=== PATIENT | male | born 1955 | race Caucasian/White ===

== ENCOUNTER 2016-04-23 16:47 | Emergency (ER) | payer OTHER, BC ==
[~2016-04-23] VITALS: Ht 177.8 cm; Wt 104.6 kg
[~2016-04-23 16:47] MED LIST: ATV/1 PO; CITA40TA12 PO; DOXY100C PO; FLNIN NAE; OMEP20CA9 PO; SIMV20TA2 PO
[2016-04-23 16:49] VITALS: TEMP 36.5; Ht 177.8 cm; Wt 104.6 kg
[2016-04-23 17:26] LABS: BASO % 0.1 %; BASO ABS # 0.01 K/uL (0-0.2); COMPLETE YES; EOS % 0.3 %; HEMATOCRIT 41.7 % (42-52); IG% 0.3 %; LYMPH % 8.5 %; LYMPH ABS # 0.99 K/uL (1.2-3.4); MEAN CELL VOLUME 83.9 fL (80-100); MEAN CORPUSCULAR HGB CONC 36.9 g/dl (32-36); MEAN PLATELET VOLUME 9.1 fL (7.4-10.4); MONO % 4.4 %; NEUT % 86.4 %; PLATELET COUNT 135 K/uL (130-400); RED BLOOD COUNT 4.97 M/uL (4.7-6.1); WHITE BLOOD COUNT 11.61 K/uL (4.8-10.8)
[2016-04-23 17:43] LABS: ALT/SGPT 26 U/L (12-78); BLOOD UREA NITROGEN 28 mg/dl (7-18); BUN/CREATININE RATIO 25.6 (10-20); CALCIUM 8.7 mg/dl (8.5-10.1); CARBON DIOXIDE 25 mmol/L (21-32); CHLORIDE 105 mmol/L (98-107); GLUCOSE 107 mg/dl (70-99); POTASSIUM 3.9 mmol/L (3.5-5.1); SODIUM 141 mmol/L (136-145)
[2016-04-23 17:47] LABS: ALKALINE PHOSPHATASE 82 U/L (45-117); AST/SGOT 28 U/L (15-37)
[2016-04-23] MEDS ORDERED: KETOROLAC TROMETHAMINE 30 MG/ML VIAL IV STA (17:48)
[2016-04-23] MEDS ORDERED: SODIUM CHLORIDE 0.9% 1000ML 1,000 ML IV STA (17:48)
[2016-04-23] MEDS ORDERED: ONDANSETRON INJ 2 MG/ML 2 ML VIAL IV STA (17:48)
[2016-04-23] MEDS ORDERED: HYDR-4079 PO (17:53)
[2016-04-23] MEDS ORDERED: LISI-725 PO (17:53)
[2016-04-23] MEDS ORDERED: MELO7.5T5 PO (17:53)
[2016-04-23] MEDS ORDERED: CHOL1000 PO (17:53)
--- NOTE | 2016-04-23 18:17 | DIAGNOSTIC IMAGING REPORT ---
CHEST ONE VIEW PORTABLE CLINICAL HISTORY: nausea vomiting COMPARISON STUDY: 03/18/2012 FINDINGS: Small bibasilar parenchymal infiltrates versus atelectasis. Lungs otherwise appear clear. Diaphragms smooth. IMPRESSION: Atelectatic change versus small bibasilar infiltrates Electronically signed by: Robbin Andrade M.D. 04/23/2016 6:16 PM Dictated Date/Time: 04/23/2016 6:15 PM
[2016-04-23 18:24] LABS: URINE BILIRUBIN NEG (NEG); URINE COLOR YELLOW; URINE EPITHELIAL CELL AUTO >30 /lpf (0-5); URINE NITRITE NEG (NEG); UROBILINOGEN NEG (NEG); ZZUR CULT IF INDIC CLEAN CATCH NO
[2016-04-23 18:36] LABS: MANUAL MICROSCOPIC REQUIRED? NO; REVIEW REQ? YES
[2016-04-23 20:24] VITALS: BP 149/81; PULSE 90; O2SAT 98
--- NOTE | 2016-04-23 20:49 | EMERGENCY ROOM VISIT NOTE ---
History Report prepared by Alex: Mari Morel Under the Supervision of: Coco BartonO. First contact with patient: 16:57 Chief Complaint: DIARRHEA Stated Complaint: BROKE OUT IN SWEAT,NAUSEA,DIARRHEA Nursing Triage Summary: pt had sudden onset of diarrhea, diaphoresis and severe headache awoke pt from sleeping at 1500 [facility] History of Present Illness The patient is a 60 year old male who presents to the Emergency Room with complaints of constant diarrhea beginning 2 hours ago. The patient states that he woke from sleeping suddenly 2 hours ago and was soaked in sweat. Following this he was having diarrhea and some nausea. He notes that he felt weak all over. He also started to have a dull headache which is located in the front of his head. He notes that he went to the urgent care and they sent him here as the was concerned that this was his heart. The patient's reports that his blood pressure was 178/91. The patient denies any cough, runny nose, sorethroat, chest pain, ear pain, shortness of breath, vomiting, previous abdominal surgeries, anyone around him been sick, and recent travel. The patient reports that he has high cholesterol and hypertension. Source of History: patient Onset: 2 hours ago Position: other (global) Quality: other (diarrhea) Timing: constant Associated Symptoms: + abdominal pain, + diaphoresis, + headache, + nausea, + weakness, No SOB, No chest pain, No cough, No sorethroat, No vomiting Note: The patient denies any runny nose, previous abdominal surgeries, anyone around him been sick, and recent travel. Review of Systems See HPI for pertinent positives & negatives. A total of 10 systems reviewed and were otherwise negative. Past Medical & Surgical Medical Problems: (1) High cholesterol (2) HTN (hypertension) Family History Diabetes mellitus Hypertension Social History Smoking Status: Never Smoker Smokeless Tobacco Use: No Alcohol Use: occasionally Marital Status: Housing Status: lives with significant other Occupation Status: retired Current/Historical Medications Scheduled Cholecalciferol (Vitamin D3), 1,000 UNITS PO DAILY Citalopram Hydrobromide (Celexa), 40 MG PO HS Lisinopril (Zestril), 20 MG PO DAILY Lorazepam (Ativan), 1 MG PO DAILY PRN Meloxicam (Mobic), 15 MG PO DAILY Omeprazole (Prilosec), 20 MG PO QAM Simvastatin (Zocor), 20 MG PO HS Scheduled PRN Hydrocodone/Acetaminophen 10MG/325MG ([place] 10MG/325MG), 1 TAB PO DAILY PRN for Pain Allergies Coded Allergies: Gluten (Unverified Allergy, Unknown, DIARRHEA-CELIAC DISEASE, 08/04/14) Nickel (Unverified Allergy, Unknown, LOCAL DERMATITIS, 08/04/14) Physical Exam Vital Signs Date Time Temp Pulse Resp B/P Pulse Ox O2 Delivery O2 Flow Rate FiO2 04/23/16 20:24 90 20 149/81 98 Room Air 04/23/16 20:22 90 20 149/81 99 04/23/16 17:30 77 20 153/91 99 Room Air 04/23/16 16:49 36.5 73 20 159/99 97 Room Air Physical Exam GENERAL: sitting up in bed, disheveled, no distress, non-toxic EYE EXAM: normal conjunctiva OROPHARYNX: no exudate, no erythema, lips, buccal mucosa, and tongue normal and mucous membranes are moist NECK: supple, no nuchal rigidity, no adenopathy, non-tender LUNGS: Clear to auscultation. Normal chest wall mechanics HEART: no murmurs, S1 normal and S2 normal ABDOMEN: abdomen soft, non-tender, normo-active bowel sounds, no masses, no rebound or guarding. BACK: Back is symmetrical on inspection and there is no deformity, no midline tenderness, no CVA tenderness. SKIN: no rashes and no bruising UPPER EXTREMITIES: upper extremities are grossly normal. LOWER EXTREMITIES: No pitting edema. NEURO EXAM: Normal sensorium, cranial nerves II-XII intact, normal speech, no weakness of arms, no weakness of legs. Drift. Finger to nose intact Medical Decision & Procedures ER Provider Diagnostic Interpretation: Xray results per the radiologist and my interpretation. CHEST ONE VIEW PORTABLE FINDINGS: Small bibasilar parenchymal infiltrates versus atelectasis. Lungs otherwise appear clear. Diaphragms smooth. IMPRESSION: Atelectatic change versus small bibasilar infiltrates Electronically signed by: Robbin Andrade M.D. 04/23/2016 6:16 PM Dictated Date/Time: 04/23/2016 6:15 PM Laboratory Results 04/23/16 17:15 Red Blood Count 4.97, Mean Corpuscular Volume 83.9, Mean Corpuscular Hemoglobin 31.0, Mean Corpuscular Hemoglobin Concent 36.9, Mean Platelet Volume 9.1, Neutrophils (%) (Auto) 86.4, Lymphocytes (%) (Auto) 8.5, Monocytes (%) (Auto) 4.4, Eosinophils (%) (Auto) 0.3, Basophils (%) (Auto) 0.1, Neutrophils # (Auto) 10.03, Lymphocytes # (Auto) 0.99, Monocytes # (Auto) 0.51, Eosinophils # (Auto) 0.04, Basophils # (Auto) 0.01 04/23/16 17:15 Test 04/23/16 17:15 04/23/16 18:00 04/23/16 19:09 White Blood Count 11.61 K/uL (4.8-10.8) Red Blood Count 4.97 M/uL (4.7-6.1) Hemoglobin 15.4 g/dL (14.0-18.0) Hematocrit 41.7 % (42-52) Mean Corpuscular Volume 83.9 fL (80-100) Mean Corpuscular Hemoglobin 31.0 pg (25-34) Mean Corpuscular Hemoglobin Concent 36.9 g/dl (32-36) Platelet Count 135 K/uL (130-400) Mean Platelet Volume 9.1 fL (7.4-10.4) Neutrophils (%) (Auto) 86.4 % Lymphocytes (%) (Auto) 8.5 % Monocytes (%) (Auto) 4.4 % Eosinophils (%) (Auto) 0.3 % Basophils (%) (Auto) 0.1 % Neutrophils # (Auto) 10.03 K/uL (1.4-6.5) Lymphocytes # (Auto) 0.99 K/uL (1.2-3.4) Monocytes # (Auto) 0.51 K/uL (0.11-0.59) Eosinophils # (Auto) 0.04 K/uL (0-0.5) Basophils # (Auto) 0.01 K/uL (0-0.2) RDW Standard Deviation 37.6 fL (36.4-46.3) RDW Coefficient of Variation 12.4 % (11.5-14.5) Immature Granulocyte % (Auto) 0.3 % Immature Granulocyte # (Auto) 0.03 K/uL (0.00-0.02) Anion Gap 11.0 mmol/L (3-11) Est Creatinine Clear Calc Drug Dose 84.3 ml/min Estimated GFR () 82.9 Estimated GFR (Non- 71.6 BUN/Creatinine Ratio 25.6 (10-20) Calcium Level 8.7 mg/dl (8.5-10.1) Total Bilirubin 0.6 mg/dl (0.2-1) Direct Bilirubin 0.2 mg/dl (0-0.2) Aspartate Amino Transf (AST/SGOT) 28 U/L (15-37) Alanine Aminotransferase (ALT/SGPT) 26 U/L (12-78) Alkaline Phosphatase 82 U/L (45-117) Total Protein 7.4 gm/dl (6.4-8.2) Albumin 3.9 gm/dl (3.4-5.0) Lipase 119 U/L (73-393) Urine Color YELLOW Urine Appearance ERROR (CLEAR) Urine pH 8.0 (4.5-7.5) Urine Specific [place] 1.020 (1.000-1.030) Urine Protein NEG (NEG) Urine Glucose (UA) NEG (NEG) Urine Ketones TRACE (NEG) Urine Occult Blood NEG (NEG) Urine Nitrite NEG (NEG) Urine Bilirubin NEG (NEG) Urine Urobilinogen NEG (NEG) Urine Leukocyte Esterase NEG (NEG) Urine WBC (Auto) 1-5 /hpf (0-5) Urine RBC (Auto) 0-4 /hpf (0-4) Urine Hyaline Casts (Auto) 10-30 /lpf (0-5) Urine Epithelial Cells (Auto) >30 /lpf (0-5) Urine Bacteria (Auto) NEG (NEG) Urine Renal Epithelial Cells /lpf (0-5) Influenza Type A Antigen Neg for Influ A (NEG) Influenza Type B Antigen Neg for Influ B (NEG) Troponin I < 0.015 ng/ml (0-0.045) Laboratory results per my review. Medications Administered Medications (Trade) Dose Ordered Sig/[place] Route Start Time Stop Time Status Last Admin Dose Admin Sodium Chloride (Nss 1000ml) 1,000 ml @ 999 mls/hr Q1H1M STAT IV 04/23/16 17:48 04/23/16 18:48 DC 04/23/16 18:22 999 MLS/HR Ketorolac Tromethamine (Toradol Inj) 30 mg NOW STAT IV 04/23/16 17:48 04/23/16 17:49 DC 04/23/16 18:23 30 MG Ondansetron HCl (Zofran Inj) 4 mg NOW STAT IV 04/23/16 17:48 04/23/16 17:49 DC 04/23/16 18:23 4 MG ECG Indication: diaphoresis Rate (beats per minute): 76 Rhythm: sinus rhythm Findings: no ectopy, other (normal axis) Comparison ECG Date: 03/18/12 Change: no significant change ED Course ED COURSE: Vital signs were reviewed and showed hypertension The patients medical record was reviewed The above diagnostic studies were performed and reviewed. ED treatments and interventions as stated above. 1699: The patient was evaluated in room B9. A complete history and physical examination was performed. 1747: Zofran Inj 4mg IV, Toradol Inj 30mg IV, Sodium Chloride 1000 ml @ 999 mls/ hr IV. 1852: I updated the patient. 1958: Upon reevaluation, the patient is hemodynamically stable.I discussed my findings with the patient and he understands and agrees with the treatment plan. Based on the patients age, coexisting illnesses, exam and lab findings the decision to treat as an outpatient was made. The patient remained stable while under my care. The patient appeared well at the time of discharge. Medical Decision Differential diagnosis: Etiologies such as gastroenteritis, food borne illness, infections, appendicitis , diverticulitis, inflammatory bowel disease, obstruction, GI bleed, biliary pathology, as well as others were entertained. Patient is a 58-year-old male who presents the ER for diaphoresis associated with nausea and diffuse weakness. He also had a mild headache. No signs of meningitis or encephalitis on exam. Labs show a leukocytosis of 11.6 thousand. BMP along with LFTs, bilirubin, lipase were negative. Troponin was negative 2. At no point he have any chest pain or shortness of breath. EKG was unremarkable. UA was negative. Influenza A and B were negative. Chest x-ray showed atelectasis the bilateral lower lobes. Do not believe that this is pneumonia as he has no upper respiratory symptoms. Patient family were updated at bedside. He was feeling slightly better following discharge and normal saline. Vitals were unremarkable. He is afebrile. He is discharged follow-up with his primary care doctor. No imaging of his abdomen was obtained as he was nontender and had no real abdominal pain. Discussed with Pt concerning signs and symptoms to watch out for. Pt was instructed to follow up with their PCP and discussed with the patient their option to return to the ED at anytime for persistent or worsening symptoms. The appropriate anticipatory guidance and out- patient management, including indications for return to the emergency department , were explained at length to the patient and understood. Impression Primary Impression: Weak Additional Impression: Diarrhea Scribe Attestation The scribe's documentation has been prepared under my direction and personally reviewed by me in its entirety. I confirm that the note above accurately reflects all work, treatment, procedures, and medical decision making performed by me. Departure Information Dispostion Home / Self-Care Referrals Amna Thibodeaux D.O. (PCP) Forms HOME CARE DOCUMENTATION FORM, IMPORTANT VISIT INFORMATION, WORK / SCHOOL INSTRUCTIONS Patient Instructions ED Weakness [facility] Additional Instructions Please follow up with your primary care doctor with in the next 24 hours. Any worsening of your symptoms, please return to the ED immediately. This includes fevers greater than 100.4, abdominal pain, chest pain, shortness of breath, or any other concerning signs or symptoms from your stand point. Please try to remain aggressively hydrated. Problem Qualifiers Additional Impression: Diarrhea Diarrhea type: unspecified type Qualified Codes: R19.7 - Diarrhea, unspecified
== END 2016-04-23 20:23 | disposition home or self-care (01) ==
LOC: C.EDB 16:49
DX: R53.1 Weakness (principal); R19.7 Diarrhea, unspecified; I10 Essential (primary) hypertension; E78.00 Pure hypercholesterolemia, unspecified; Z82.49 Family history of ischemic heart disease and other diseases of the circulatory system; Z83.3 Family history of diabetes mellitus; Z79.899 Other long term (current) drug therapy

== ENCOUNTER 2020-01-20 20:43 | Observation (INO) ==
--- OUTSIDE RECORDS SUMMARY | 2020-01-20 20:45 | External Medical Summary | Continuity of Care Document ---
:1955 Author Name Irasema De Leon, Provider Address Unavailable Unavailable , Care Team Providers Name Role Phone Irasema De Leon, Urology Unavailable [email or web address] PCP, UNKNOWN Unavailable Unavailable Problems Active medical history not documented Allergies and Adverse Reactions Allergy history not documented Medications Medications not documented Procedures Procedures not documented Immunizations Immunizations not documented Plan of Treatment Planned Observations Planned Goals not documented Results No Known Results Results not documented
[2020-01-20 21:36] LABS: Basophils # (auto) 0.02 K/uL (0-0.2); Basophils % (auto) 0.2 %; Eosinophils # (auto) 0.02 K/uL (0-0.5); Eosinophils % (auto) 0.2 %; Hematocrit (blood only) 44.2 % (42-52); Hemoglobin 15.9 g/dL (14.0-18.0); Immature Granulocytes # (auto) 0.02 K/uL (0.00-0.02); Immature Granulocytes % (auto) 0.2 %; Lymphocytes # (auto) 1.66 K/uL (1.2-3.4); Mean Corpuscular Hemoglobin 31.7 pg (25-34); Mean Corpuscular Volume 88.2 fL (80-100); Monocytes # (auto) 0.55 K/uL (0.11-0.59); Monocytes % (auto) 6.3 %; Neutrophils # (auto) 6.46 K/uL (1.4-6.5); Neutrophils % (auto) 74.1 %; Platelet Count 176 K/uL (130-400); RDW Coefficient of Variation 12.6 % (11.5-14.5); RDW Standard Deviation 40.4 fL (36.4-46.3); Red Blood Count 5.01 M/uL (4.7-6.1); White Blood Count 8.73 K/uL (4.8-10.8)
[2020-01-20 21:47] LABS: Partial Thromboplastin Time 26.9 Seconds (21.0-31.0); Prothrombin Time 10.3 Seconds (9.0-12.0)
[2020-01-20 22:17] LABS: Alanine Aminotransferase 29 U/L (12-78); Albumin Globulin Ratio 1.1 (0.9-2); Alkaline Phosphatase 85 U/L (45-117); BUN Creatinine Ratio 15.8 (10-20); Bilirubin,Total 0.8 mg/dl (0.2-1); Blood Urea Nitrogen 22 mg/dl (7-18); Calcium 9.6 mg/dl (8.5-10.1); Carbon Dioxide 27 mmol/L (21-32); Chloride 106 mmol/L (98-107); Est GFR (African American) 61.9; Est GFR (Non-African American) 53.4; Globulin 3.6 gm/dl (2.5-4.0); Glucose 109 mg/dl (70-99); Sodium 141 mmol/L (136-145); Total Protein 7.6 gm/dl (6.4-8.2); Troponin I < 0.015 ng/ml (0-0.045)
[2020-01-20 22:25] LABS: Appearance Urine Clear (Clear); Bilirubin Urine Negative (Negative); Blood Urine Negative (Negative); Color Urine Yellow; Glucose Urine UA Negative (Negative); Ketones Urine Negative (Negative); Leukocyte Esterase Urine Negative (Negative); Nitrite Urine Negative (Negative); Protein Urine Negative (Negative); Urobilinogen Urine Negative (Negative)
[2020-01-20 22:59] LABS: Potassium 3.8 mmol/L (3.5-5.1)
[2020-01-20] MEDS ORDERED: SODIUM CHLORIDE 0.9% 500 ML IV ONE (22:59)
[2020-01-20 23:02] LABS: D Dimer 660 ug/L FEU (0-500)
[2020-01-20 23:14] LABS: Magnesium 2.2 mg/dl (1.8-2.4); Thyroid Stimulating Hormone 1.14 uIu/ml (0.300-4.500)
[2020-01-20] MEDS ORDERED: OPTIRAY 320 125ml IV ONE (23:54)
--- NOTE | 2020-01-21 00:27 | History & Physical Report ---
Date of Service January 21, 2020 Assessment & Plan (1) Syncope: Patient is a 58-year-old male with a past medical history of hypertension, GERD, arthritis, degenerative disc disease, hyperlipidemia, obesity, pain, depression, with a remote history of epilepsy as a child. Patient relays a hi story to me of recent syncopal episodes. #Syncope Previously worked up at [facility], with no clear etiology of the syncope. Previously felt as if syncope was related to orthostasis related to use of Viagra. Patient has been stopped using Viagra, and continued to have syncopal episodes. Given the lack of post ictal characteristics, lack of aura, lack of other neurological symptoms, his syncope is most likely related to a more benign process such as orthostasis as opposed to significant arrhythmia or seizure. However given the repeated episodes, and current atrial fibrillation we will admit him for observation and further work-up. Monitor neuro and vital signs Fall precautions Optimize electrolytes Cardiology consultation Patient reports that he was told by EMS that he had atrial fibrillation- Patient does not previously carry diagnosis of atrial fibrillation, he had an echo obtained at [facility] which demonstrate left ventricular cavity size is normal, wall thickness mildly increased, systolic function normal, EF 60 to 65%, no wall motion abnormalities, patient was in sinus rhythm during the study. Well it is unlikely it is certainly possible that the patient could be experiencing syncopal episodes if he transitions into and out of atrial fibrillation. Will will provide a small dose of Lopressor and a cardiology consult, monitor on telemetry. EKG in the ED found be normal sinus rhythm, and patient will be admitted to the telemetry unit for monitoring for possible arrhythmia -Monitor on telemetry -Provided one-time dose of IV 5 mg metoprolol with hopes of gaining some rate control at this time I do not think diltiazem is indicated. -We will monitor through the night -Consult cardiology -Echo ordered #Anxiety Patient with a history of anxiety and panic attacks, reports he had no anxiety symptoms or panic attack symptoms during his current syncopal episodes. Patient is currently controlled on duloxetine 60 mg p.o. daily. -Continue home medication -Explore anxiety as an etiology for his current presentation #Hyperlipidemia -Continue simvastatin 20 mg p.o. at bedtime #Hypertension -Continue home losartan 50 mg p.o. daily -Continue home lisinopril 20 mg daily #GERD -Continue daily omeprazole #Arthritis -Continue meloxicam 15 mg p.o. at bedtime #History of epilepsy The team to consider whether this is contributing or not. -To consider neurology consult FENa: N.p.o. overnight in the event of procedure is warranted tomorrow Code Status: Full code DVT PPX: Heparin drip PT/OT: Not indicated Dispo: Telemetry Beni Ulrich MD PGY 2, FCM This chart was completed utilizing [employer] voice recognition software. Grammatical errors, random word insertions, pronoun errors, and in complete sentences are an occasional consequence of the system. Any questions or concerns about the content, text, or information contained within the body of this dictation should be addressed directly to the physician for clarification. (2) Anxiety: (3) Atrial fibrillation: (4) History of epilepsy: (5) HTN (hypertension): (6) High cholesterol: (7) Weak: (8) GERD (gastroesophageal reflux disease): History of Present Illness Patient is a 58-year-old male with a past medical history of hypertension, GERD, arthritis, degenerative disc disease, hyperlipidemia, obesity, pain, depression, with a remote history of epilepsy as a child. Patient relays a history to me of recent syncopal episodes. He reports the first syncopal episode happened on January 11. At that time he was sitting on the ground playing with his dog, he got up to take the dog outside and had a syncopal episode. During the episode he reportedly fell to the floor, his ran to him, noted he was not breathing, began smacking his back. Eventually he regained consciousness. He did not describe any postictal symptoms, nor other symptoms that would suggest the cause of his syncopal episode. He had presented to the [facility] ER at that point who evaluated him for the syncopal episode. He had a negative work- up at [facility], and was admitted overnight. Given his negative work-up, the physicians felt as if it was caused by his Viagra and an orthostatic episode. He returned home and was doing well, approximately 2 nights ago he had an episode in the middle the night where he was breathing heavy, his woke him up, he was sweaty and hot, he went back to sleep at night without any issues. Earlier today he was in his usual state of health when he experienced a syncopal episode and subsequently presented to our emergency department. In route to the emergency department the EMS team noted that the patient was in atrial fibrillation. Upon arrival to the emergency department he was examined, and no focal findings were identified. lab work was performed demonstrating a normal CBC, and elevated D-dimer to 660, normal Chem-7, normal liver function studies, and normal urine. Preliminary wet read for chest CTA is negative for embolus chest x-ray is negative as well. EKG demonstrated normal sinus rhythm with a rate of 100, pressures are 158/91. Patient was administered 1 L of sodium chloride. Upon reviewing the history with the patient he did identify that he was previously treated for epilepsy well in high school, he does not remember significant d etails, and remembers weaning himself off the medicine. The patient does not follow with a equity research analyst he was opposed to see when tomorrow. Given the patient's multiple syncopal episodes, the primary team was contacted for admission Primary Care Provider: Amna Thibodeaux Allergies Allergy/AdvReac Type Severity Reaction Status Date / Time gluten Allergy Unknown DIARRHEA-CELIAC Unverified 01/21/20 00:07 DISEASE nickel Allergy Unknown LOCAL Unverified 01/21/20 00:07 DERMATITIS Home Medications Medication Instructions Recorded Confirmed Type duloxetine 60 mg PO DAILY 01/21/20 01/21/20 History lisinopril 20 mg PO DAILY 01/21/20 01/21/20 History losartan 50 mg PO DAILY 01/21/20 01/21/20 History meclizine 25 mg PO TID PRN 01/21/20 01/21/20 History meloxicam 15 mg PO HS 01/21/20 01/21/20 History omeprazole 20 mg PO DAILY 01/21/20 01/21/20 History simvastatin 20 mg PO HS 01/21/20 01/21/20 History Past Med/Surg History Medical History GERD (gastroesophageal reflux disease) High cholesterol HTN (hypertension) Social History Smoking Status: Unknown if ever smoked Hx Alcohol Use: No Hx Substance Use: No Preferred Language: Bangladeshi Communication Ability: Effective Tubing Machine Tender Required: No Beliefs That Will Affect Care: None Current Living Situation: Family Feels Safe at Home: Yes Safety Concerns: Feels Safe At This Time Assistive Devices: Glasses Review of Systems Review of Systems: All systems reviewed & are unremarkable except as noted in HPI & below Physical Exam Physical Exam: General: In no acute distress, lying in bed HEENT: Normocephalic atraumatic Neck: Normal to visual inspection, trachea midline Cardiac: normal S1, normal S2, I did not appreciate any significant murmurs, rubs, gallops, negative pedal edema, negative calf tenderness Respiratory: Clear to auscultation bilaterally with symmetrical chest expansion bilaterally, I did not appreciate significant wheezes, rales, rhonchi GI: Soft, nontender, nondistended, bowel sounds present in all 4 quadrants MSK: Moves all extremities Skin: Warm dry intact Neuro: Alert and oriented x4, CN II through XII grossly intact, strength grossly intact, sensation grossly intact, cerebellar function grossly intact Psych: Normal affect, cooperative Results & Data Results & Data ([facility]) Vital Signs (Past 12 Hours) Vital Signs Temp Pulse Pulse Resp BP BP Pulse Ox 01/20/20 22:52 100 H 16 158/91 H 98 01/20/20 21:30 103 H 17 184/88 H 98 01/20/20 21:20 97 H 17 98 01/20/20 21:10 97 H 14 98 01/20/20 21:00 92 H 14 172/93 H 99 01/20/20 20:52 75 18 97 01/20/20 20:51 36.8 C 94 H 18 166/94 H 100 01/20/20 20:49 77 19 166/114 H 98 Laboratory Results 01/20/20 01/20/20 01/20/20 Range/Units 22:35 22:35 20:57 WBC (4.8-10.8) K/uL RBC (4.7-6.1) M/uL Hgb (14.0-18.0) g/dL Hct (42-52) % MCV (80-100) fL MCH (25-34) pg MCHC (32-36) g/dL RDW Std Deviation (36.4-46.3) fL RDW Coeff of Renetta (11.5-14.5) % Plt Count (130-400) K/uL MPV (7.4-10.4) fL Immature Gran % (Auto) % Neut % (Auto) % Lymph % (Auto) % Brooke % (Auto) % Eos % (Auto) % Baso % (Auto) % Neut # (Auto) (1.4-6.5) K/uL Lymph # (Auto) (1.2-3.4) K/uL Brooke # (Auto) (0.11-0.59) K/uL Eos # (Auto) (0-0.5) K/uL Baso # (Auto) (0-0.2) K/uL Immature Gran # (Auto) (0.00-0.02) K/uL PT (9.0-12.0) Seconds INR (0.9-1.1) APTT (21.0-31.0) Seconds PTT Ratio D-Dimer 660 H* (0-500) ug/L FEU Sodium (136-145) mmol/L Potassium 3.8 (3.5-5.1) mmol/L Chloride (98-107) mmol/L Carbon Dioxide (21-32) mmol/L Anion Gap (3-11) BUN (7-18) mg/dl Creatinine (0.6-1.4) mg/dl Est Cr Clr Drug Dosing ml/min Est GFR ( Amer) Est GFR (Non-Af Amer) BUN/Creatinine Ratio (10-20) Glucose (70-99) mg/dl Calcium (8.5-10.1) mg/dl Magnesium 2.2 (1.8-2.4) mg/dl Total Bilirubin (0.2-1) mg/dl AST 25 (15-37) U/L ALT (12-78) U/L Alkaline Phosphatase (45-117) U/L Troponin I (0-0.045) ng/ml Total Protein (6.4-8.2) gm/dl Albumin (3.4-5.0) gm/dl Globulin (2.5-4.0) gm/dl Albumin/Globulin Ratio (0.9-2) TSH 1.140 (0.300-4.500) uIu/ml Urine Color Yellow Urine Appearance Clear (Clear) Urine pH 8.0 H (4.5-7.5) Ur Specific Given 1.010 (1.000-1.030) Urine Protein Negative (Negative) Urine Glucose (UA) Negative (Negative) Urine Ketones Negative (Negative) Urine Blood Negative (Negative) Urine Nitrite Negative (Negative) Urine Bilirubin Negative (Negative) Urine Urobilinogen Negative (Negative) Ur Leukocyte Esterase Negative (Negative) 01/20/20 01/20/20 01/20/20 Range/Units 20:57 20:57 20:57 WBC 8.73 (4.8-10.8) K/uL RBC 5.01 (4.7-6.1) M/uL Hgb 15.9 (14.0-18.0) g/dL Hct 44.2 (42-52) % MCV 88.2 (80-100) fL MCH 31.7 (25-34) pg MCHC 36.0 (32-36) g/dL RDW Std Deviation 40.4 (36.4-46.3) fL RDW Coeff of Renetta 12.6 (11.5-14.5) % Plt Count 176 (130-400) K/uL MPV 10.0 (7.4-10.4) fL Immature Gran % (Auto) 0.2 % Neut % (Auto) 74.1 % Lymph % (Auto) 19.0 % Brooke % (Auto) 6.3 % Eos % (Auto) 0.2 % Baso % (Auto) 0.2 % Neut # (Auto) 6.46 (1.4-6.5) K/uL Lymph # (Auto) 1.66 (1.2-3.4) K/uL Brooke # (Auto) 0.55 (0.11-0.59) K/uL Eos # (Auto) 0.02 (0-0.5) K/uL Baso # (Auto) 0.02 (0-0.2) K/uL Immature Gran # (Auto) 0.02 (0.00-0.02) K/uL PT 10.3 (9.0-12.0) Seconds INR 1.0 (0.9-1.1) APTT 26.9 (21.0-31.0) Seconds PTT Ratio 1.0 D-Dimer (0-500) ug/L FEU Sodium 141 (136-145) mmol/L Potassium (3.5-5.1) mmol/L Chloride 106 (98-107) mmol/L Carbon Dioxide 27 (21-32) mmol/L Anion Gap 8.0 (3-11) BUN 22 H (7-18) mg/dl Creatinine 1.37 (0.6-1.4) mg/dl Est Cr Clr Drug Dosing 66.0 ml/min Est GFR ( Amer) 61.9 Est GFR (Non-Af Amer) 53.4 BUN/Creatinine Ratio 15.8 (10-20) Glucose 109 H (70-99) mg/dl Calcium 9.6 (8.5-10.1) mg/dl Magnesium (1.8-2.4) mg/dl Total Bilirubin 0.8 (0.2-1) mg/dl AST (15-37) U/L ALT 29 (12-78) U/L Alkaline Phosphatase 85 (45-117) U/L Troponin I < 0.015 (0-0.045) ng/ml Total Protein 7.6 (6.4-8.2) gm/dl Albumin 4.0 (3.4-5.0) gm/dl Globulin 3.6 (2.5-4.0) gm/dl Albumin/Globulin Ratio 1.1 (0.9-2) TSH (0.300-4.500) uIu/ml Urine Color Urine Appearance (Clear) Urine pH (4.5-7.5) Ur Specific Given (1.000-1.030) Urine Protein (Negative) Urine Glucose (UA) (Negative) Urine Ketones (Negative) Urine Blood (Negative) Urine Nitrite (Negative) Urine Bilirubin (Negative) Urine Urobilinogen (Negative) Ur Leukocyte Esterase (Negative) Code Status & VTE Plan Code Status full VTE Prophylaxis Plan VTE Prophylaxis will be ordered: Yes Supervising Physician Co-Signing Physician Notes Attending addendum: I have physically seen this patient, have supervised the medical residents activities, and agree with the H&P unless as otherwise noted. Assessment and Plan: Syncope- Previously admitted to [facility] for 2 days with negative work-up. The patient will be admitted to telemetry for serial cardiac enzymes, serial EKG's, cardiac rhythm monitoring and a 2-D echocardiogram with Dopplers. Continue off of Viagra, even though symptoms appear to not be directly linked at this time. Would also have to consider duloxetine as a potential trigger. Consult cardiology Hyperlipidemia- continue simvastatin GERD- Change omeprazole to pantoprazole Resident Activity Tracking Resident Involvement: Resident Care Provided Care Provided: Adult Hospital Medicine
[2020-01-21] MEDS ORDERED: METOPROLOL TARTRATE 1 MG/ML VIAL IV STA (00:36)
--- NOTE | 2020-01-21 01:37 | Emergency Department Note ---
History of Present Illness General Chief complaint: Syncope Time Seen by Provider: 01/20/20 21:35 Source: patient Mode of arrival: EMS Limitations: no limitations History of Present Illness Maximum Pain Intensity: 3 This patient is a 64-year-old male who presents to the emergency department via EMS for evaluation of a syncopal episode. The patient states that he has had 2 separate syncopal episodes at home. The initial episode occurred last week. The patient had been playing with his dog and states that he got up and went out into the kitchen to take his medications. He then went into the living room and suddenly passed out, falling face first into the coffee table. Patient states that he does not remember the incident. He was told by his that he had turned blue and was not breathing. He was taken to the [facility] and was admitted for 2 days. He was told that he may be dehydrated and was discharged. Patient states that last night during the night, he became diaphoretic and nauseous and his said he seemed to be having difficulty breathing. He states that today, he had another syncopal episode, however prior to this he did feel a gilmore of warmth, nausea and dizziness. He has had some intermittent headaches since his fall last week. He denies chest pain, shortness of breath, fevers or recent illness. Patient states that he was told by EMS he was in atrial fibrillation. He states that he has been keeping well hydrated. Denies urinary symptoms, abdominal pain, diarrhea, vision changes, numbness or weakness. Home Medications Medication Instructions Recorded Confirmed Type duloxetine 60 mg PO DAILY 01/21/20 01/21/20 History lisinopril 20 mg PO DAILY 01/21/20 01/21/20 History losartan 50 mg PO DAILY 01/21/20 01/21/20 History meclizine 25 mg PO TID PRN 01/21/20 01/21/20 History meloxicam 15 mg PO HS 01/21/20 01/21/20 History omeprazole 20 mg PO DAILY 01/21/20 01/21/20 History simvastatin 20 mg PO HS 01/21/20 01/21/20 History sumatriptan succinate [Imitrex] See Rx Instructions .ROUTE 01/22/20 Rx .COMPLEX #5 tab Allergies Allergy/AdvReac Type Severity Reaction Status Date / Time gluten Allergy Unknown DIARRHEA-CELIAC Unverified 01/21/20 00:07 DISEASE nickel Allergy Unknown LOCAL Unverified 01/21/20 00:07 DERMATITIS Past Med/Surg History Medical History GERD (gastroesophageal reflux disease) High cholesterol HTN (hypertension) Social History Smoking Status: Unknown if ever smoked Hx Alcohol Use: No Hx Substance Use: No Preferred Language: Gabonese Communication Ability: Effective Disaster Recovery Specialist Required: No Beliefs That Will Affect Care: None Current Living Situation: Family Feels Safe at Home: Yes Assistive Devices: Glasses Review of Systems A total of 10 systems reviewed and were otherwise negative Physical Exam Vital Signs Vital Signs - 24 hr 01/20/20 20:49 01/20/20 20:51 01/20/20 20:52 Temperature 36.8 C Temperature Source Oral Pulse Rate - Lying Pulse Rate - Sitting Pulse Rate - Standing Pulse Rate 77 94 H 75 Pulse Rate [Right] Pulse Rate from SpO2 Sensor 80 83 Pulse Rhythm [Right] Pulse Strength [Right] Respiratory Rate 19 18 18 Respiratory Effort / Characteristics Respiratory Depth Blood Pressure - Lying Blood Pressure - Sitting Blood Pressure- Standing Blood Pressure 166/114 H 166/94 H Blood Pressure [Right Arm] Blood Pressure Mean 117 118 Blood Pressure Mean [Right Arm] Blood Pressure Position [Right Arm] Pulse Oximetry 98 100 97 Oxygen Delivery Method Room Air Sepsis Recent Fever Within 48 Hours No Sepsis New/Unexplained Change in Mental Status N/A Sepsis Action Taken by Nursing No Action Required 01/20/20 21:00 01/20/20 21:10 01/20/20 21:20 Temperature Temperature Source Pulse Rate - Lying Pulse Rate - Sitting Pulse Rate - Standing Pulse Rate 92 H 97 H 97 H Pulse Rate [Right] Pulse Rate from SpO2 Sensor 92 H 97 H 97 H Pulse Rhythm [Right] Pulse Strength [Right] Respiratory Rate 14 14 17 Respiratory Effort / Characteristics Respiratory Depth Blood Pressure - Lying Blood Pressure - Sitting Blood Pressure- Standing Blood Pressure 172/93 H Blood Pressure [Right Arm] Blood Pressure Mean 126 Blood Pressure Mean [Right Arm] Blood Pressure Position [Right Arm] Pulse Oximetry 99 98 98 Oxygen Delivery Method Sepsis Recent Fever Within 48 Hours Sepsis New/Unexplained Change in Mental Status Sepsis Action Taken by Nursing 01/20/20 21:30 01/20/20 22:20 01/20/20 22:52 Temperature Temperature Source Pulse Rate - Lying 101 H Pulse Rate - Sitting 111 H Pulse Rate - Standing 109 H Pulse Rate 103 H Pulse Rate [Right] 100 H Pulse Rate from SpO2 Sensor 100 H Pulse Rhythm [Right] Regular Pulse Strength [Right] Normal Respiratory Rate 17 16 Respiratory Effort / Characteristics Non-Labored Spontaneous Respiratory Depth Normal Blood Pressure - Lying 179/95 H Blood Pressure - Sitting 190/93 H Blood Pressure- Standing 171/99 H Blood Pressure 184/88 H Blood Pressure [Right Arm] 158/91 H Blood Pressure Mean 129 Blood Pressure Mean [Right Arm] 113 Blood Pressure Position [Right Arm] Pulse Oximetry 98 98 Oxygen Delivery Method Room Air Sepsis Recent Fever Within 48 Hours Sepsis New/Unexplained Change in Mental Status Sepsis Action Taken by Nursing 01/21/20 00:36 01/21/20 00:52 01/21/20 01:18 Temperature Temperature Source Pulse Rate - Lying Pulse Rate - Sitting Pulse Rate - Standing Pulse Rate 99 H Pulse Rate [Right] 96 H 88 Pulse Rate from SpO2 Sensor Pulse Rhythm [Right] Regular Regular Pulse Strength [Right] Normal Normal Respiratory Rate 18 16 Respiratory Effort / Characteristics Non-Labored Spontaneous Non-Labored Spontaneous Respiratory Depth Normal Normal Blood Pressure - Lying Blood Pressure - Sitting Blood Pressure- Standing Blood Pressure 162/98 H Blood Pressure [Right Arm] 162/87 H 150/94 H Blood Pressure Mean Blood Pressure Mean [Right Arm] 112 112 Blood Pressure Position [Right Arm] Lying Lying Pulse Oximetry 96 96 Oxygen Delivery Method Room Air Room Air Sepsis Recent Fever Within 48 Hours Sepsis New/Unexplained Change in Mental Status Sepsis Action Taken by Nursing VITALS: Vitals are noted on the nurse's note and reviewed by myself. GENERAL: This is a 64-year-old male, in no acute distress, lying supine in bed. SKIN: The skin was without rashes. HEAD: Normocephalic atraumatic. EARS: External auditory canals clear, tympanic membranes pearly grimm without erythema or effusion bilaterally. EYES: Pupils equal round and reactive to light and accommodation. Extraocular movements intact. MOUTH: Mucous membranes moist. Tonsils are not enlarged. Pharynx without erythema or exudate. NECK: Supple without nuchal rigidity. No lymphadenopathy. No thyromegaly. HEART: Regular rate and rhythm without murmurs gallops or rubs. LUNGS: Clear to auscultation bilaterally without wheezes, rales or rhonchi. ABDOMEN: Positive bowel sounds x 4. Soft, nontender to palpation. No guarding or rebound tenderness. MUSCULOSKELETAL: Full range of motion throughout. Strength 5/5 throughout. NEURO: Patient was alert and oriented to person place and time. No focal neurological deficits. Course Consultations Consultation #1: [facility] [place] hospitalist Administered Medications Discontinued Medications Acetaminophen (Acetaminophen 325 Mg Tab) 650 mg PO Q4H PRN PRN Reason: Pain or Fever Stop: 02/20/20 01:52 Last Admin: 01/21/20 08:09 Dose: 650 mg Documented by: [id number] Duloxetine HCl (Duloxetine Hcl 60 Mg Cap) 60 mg PO DAILY [facility] Stop: 02/20/20 08:59 Last Admin: 01/22/20 08:10 Dose: 60 mg Documented by: [id number] Admin: 01/21/20 08:10 Dose: 60 mg Documented by: [id number] Heparin Sodium/Dextrose (Heparin Iv Low Dose *No* Bolus) 1 ea IV Q15M [facility]; Protocol Stop: 01/21/20 06:00 Last Admin: 01/21/20 02:58 Dose: Not Given Documented by: [id number] Sodium Chloride (Nss) 500 mls @ 999 mls/hr IV .Q31M ONE Stop: 01/20/20 23:29 Last Infusion: 01/20/20 23:33 Dose: 0 mls/hr Documented by: [id number] Admin: 01/20/20 23:00 Dose: 999 mls/hr Documented by: [id number] Heparin Sodium/Dextrose (Heparin Sodium/Dextrose) 25,000 units in 500 mls @ 20 mls/hr IV .Q24H [facility]; Protocol Stop: 02/20/20 01:52 Last Admin: 01/21/20 03:01 Dose: Not Given Documented by: [id number] Ibuprofen (Ibuprofen 600 Mg Tab) Confirm Administered Dose 600 mg PO .STK-MED ONE Stop: 01/21/20 20:49 Last Admin: 01/21/20 20:49 Dose: 600 mg Documented by: [id number] Ioversol (Optiray 320 125ml) 125 ml IV ONCE ONE Stop: 01/20/20 23:55 Last Admin: 01/20/20 23:55 Dose: 95 ml Documented by: [id number] Lisinopril (Lisinopril 20 Mg Tab) 20 mg PO DAILY [facility] Stop: 02/20/20 08:59 Last Admin: 01/21/20 08:11 Dose: Not Given Documented by: [id number] Losartan Potassium (Losartan Potassium 50 Mg Tab) 50 mg PO DAILY [facility] Stop: 02/20/20 08:59 Last Admin: 01/22/20 08:11 Dose: Not Given Documented by: [id number] Admin: 01/21/20 08:10 Dose: 50 mg Documented by: [id number] Meloxicam (Meloxicam 7.5 Mg Tab) 15 mg PO HS [facility] Stop: 02/20/20 20:59 Last Admin: 01/21/20 20:49 Dose: 15 mg Documented by: [id number] Metoprolol Tartrate (Metoprolol Tartrate 1 Mg/Ml Vial) 5 mg IV NOW STA Stop: 01/21/20 00:37 Last Admin: 01/21/20 00:52 Dose: 5 mg Documented by: [id number] Pantoprazole Sodium (Pantoprazole 40 Mg Tab) 40 mg PO DAILY [facility] Stop: 02/20/20 08:59 Last Admin: 01/22/20 08:10 Dose: 40 mg Documented by: [id number] Admin: 01/21/20 08:10 Dose: 40 mg Documented by: [id number] Polyethylene Glycol (Polyethylene (Miralax) 17 Gm Pack) 17 gm PO DAILY [facility] Stop: 02/20/20 08:59 Last Admin: 01/22/20 08:11 Dose: Not Given Documented by: [id number] Admin: 01/21/20 08:10 Dose: 17 gm Documented by: [id number] Potassium Chloride (Potassium Chloride Crtab 20 Meq Tabcr) 20 meq PO NOW ONE Stop: 01/21/20 01:54 Last Admin: 01/21/20 02:30 Dose: 20 meq Documented by: [id number] Simvastatin (Simvastatin 20 Mg Tab) 20 mg PO HS [facility] Stop: 02/20/20 20:59 Last Admin: 01/21/20 20:50 Dose: 20 mg Documented by: [id number] Sumatriptan Succinate (Sumatriptan Succinate 100 Mg Tab) 100 mg PO ONE ONE Stop: 01/21/20 23:14 Last Admin: 01/22/20 00:27 Dose: 100 mg Documented by: [id number] Medical Decision Making Differential Diagnosis Vasovagal event, dehydration, infection, hypoglycemia, electrolyte abnormalities, cardiac sources, intracerebral event, pulmonary embolism, seizure, toxicologic, neurologic, as well as other pathologies. Home Medications Current Medication List: was personally reviewed by me Laboratory Data Attestation: I reviewed the patient's lab results. Result diagrams: 01/21/20 07:50 01/21/20 07:50 Lab Results 01/20/20 01/20/20 01/20/20 Range/Units 20:57 20:57 20:57 WBC 8.73 (4.8-10.8) K/uL RBC 5.01 (4.7-6.1) M/uL Hgb 15.9 (14.0-18.0) g/dL Hct 44.2 (42-52) % MCV 88.2 (80-100) fL MCH 31.7 (25-34) pg MCHC 36.0 (32-36) g/dL RDW Std Deviation 40.4 (36.4-46.3) fL RDW Coeff of Renetta 12.6 (11.5-14.5) % Plt Count 176 (130-400) K/uL MPV 10.0 (7.4-10.4) fL Immature Gran % (Auto) 0.2 % Neut % (Auto) 74.1 % Lymph % (Auto) 19.0 % Edgar % (Auto) 6.3 % Eos % (Auto) 0.2 % Baso % (Auto) 0.2 % Neut # (Auto) 6.46 (1.4-6.5) K/uL Lymph # (Auto) 1.66 (1.2-3.4) K/uL Edgar # (Auto) 0.55 (0.11-0.59) K/uL Eos # (Auto) 0.02 (0-0.5) K/uL Baso # (Auto) 0.02 (0-0.2) K/uL Immature Gran # (Auto) 0.02 (0.00-0.02) K/uL PT 10.3 (9.0-12.0) Seconds INR 1.0 (0.9-1.1) APTT 26.9 (21.0-31.0) Seconds PTT Ratio 1.0 D-Dimer (0-500) ug/L FEU Sodium 141 (136-145) mmol/L Potassium (3.5-5.1) mmol/L Chloride 106 (98-107) mmol/L Carbon Dioxide 27 (21-32) mmol/L Anion Gap 8.0 (3-11) BUN 22 H (7-18) mg/dl Creatinine 1.37 (0.6-1.4) mg/dl Est Cr Clr Drug Dosing 66.0 ml/min Est GFR ( Amer) 61.9 Est GFR (Non-Af Amer) 53.4 BUN/Creatinine Ratio 15.8 (10-20) Glucose 109 H (70-99) mg/dl Calcium 9.6 (8.5-10.1) mg/dl Magnesium (1.8-2.4) mg/dl Total Bilirubin 0.8 (0.2-1) mg/dl AST (15-37) U/L ALT 29 (12-78) U/L Alkaline Phosphatase 85 (45-117) U/L Troponin I < 0.015 (0-0.045) ng/ml Total Protein 7.6 (6.4-8.2) gm/dl Albumin 4.0 (3.4-5.0) gm/dl Globulin 3.6 (2.5-4.0) gm/dl Albumin/Globulin Ratio 1.1 (0.9-2) TSH (0.300-4.500) uIu/ml Urine Color Urine Appearance (Clear) Urine pH (4.5-7.5) Ur Specific [place] (1.000-1.030) Urine Protein (Negative) Urine Glucose (UA) (Negative) Urine Ketones (Negative) Urine Blood (Negative) Urine Nitrite (Negative) Urine Bilirubin (Negative) Urine Urobilinogen (Negative) Ur Leukocyte Esterase (Negative) SARS-CoV-2 Ag (Rapid) (Negative) 01/20/20 01/20/20 01/20/20 Range/Units 20:57 22:35 22:35 WBC (4.8-10.8) K/uL RBC (4.7-6.1) M/uL Hgb (14.0-18.0) g/dL Hct (42-52) % MCV (80-100) fL MCH (25-34) pg MCHC (32-36) g/dL RDW Std Deviation (36.4-46.3) fL RDW Coeff of Renetta (11.5-14.5) % Plt Count (130-400) K/uL MPV (7.4-10.4) fL Immature Gran % (Auto) % Neut % (Auto) % Lymph % (Auto) % Edgar % (Auto) % Eos % (Auto) % Baso % (Auto) % Neut # (Auto) (1.4-6.5) K/uL Lymph # (Auto) (1.2-3.4) K/uL Edgar # (Auto) (0.11-0.59) K/uL Eos # (Auto) (0-0.5) K/uL Baso # (Auto) (0-0.2) K/uL Immature Gran # (Auto) (0.00-0.02) K/uL PT (9.0-12.0) Seconds INR (0.9-1.1) APTT (21.0-31.0) Seconds PTT Ratio D-Dimer 660 H* (0-500) ug/L FEU Sodium (136-145) mmol/L Potassium 3.8 (3.5-5.1) mmol/L Chloride (98-107) mmol/L Carbon Dioxide (21-32) mmol/L Anion Gap (3-11) BUN (7-18) mg/dl Creatinine (0.6-1.4) mg/dl Est Cr Clr Drug Dosing ml/min Est GFR ( Amer) Est GFR (Non-Af Amer) BUN/Creatinine Ratio (10-20) Glucose (70-99) mg/dl Calcium (8.5-10.1) mg/dl Magnesium 2.2 (1.8-2.4) mg/dl Total Bilirubin (0.2-1) mg/dl AST 25 (15-37) U/L ALT (12-78) U/L Alkaline Phosphatase (45-117) U/L Troponin I (0-0.045) ng/ml Total Protein (6.4-8.2) gm/dl Albumin (3.4-5.0) gm/dl Globulin (2.5-4.0) gm/dl Albumin/Globulin Ratio (0.9-2) TSH 1.140 (0.300-4.500) uIu/ml Urine Color Yellow Urine Appearance Clear (Clear) Urine pH 8.0 H (4.5-7.5) Ur Specific [place] 1.010 (1.000-1.030) Urine Protein Negative (Negative) Urine Glucose (UA) Negative (Negative) Urine Ketones Negative (Negative) Urine Blood Negative (Negative) Urine Nitrite Negative (Negative) Urine Bilirubin Negative (Negative) Urine Urobilinogen Negative (Negative) Ur Leukocyte Esterase Negative (Negative) SARS-CoV-2 Ag (Rapid) (Negative) 01/21/20 Range/Units 00:26 WBC (4.8-10.8) K/uL RBC (4.7-6.1) M/uL Hgb (14.0-18.0) g/dL Hct (42-52) % MCV (80-100) fL MCH (25-34) pg MCHC (32-36) g/dL RDW Std Deviation (36.4-46.3) fL RDW Coeff of Renetta (11.5-14.5) % Plt Count (130-400) K/uL MPV (7.4-10.4) fL Immature Gran % (Auto) % Neut % (Auto) % Lymph % (Auto) % Edgar % (Auto) % Eos % (Auto) % Baso % (Auto) % Neut # (Auto) (1.4-6.5) K/uL Lymph # (Auto) (1.2-3.4) K/uL Edgar # (Auto) (0.11-0.59) K/uL Eos # (Auto) (0-0.5) K/uL Baso # (Auto) (0-0.2) K/uL Immature Gran # (Auto) (0.00-0.02) K/uL PT (9.0-12.0) Seconds INR (0.9-1.1) APTT (21.0-31.0) Seconds PTT Ratio D-Dimer (0-500) ug/L FEU Sodium (136-145) mmol/L Potassium (3.5-5.1) mmol/L Chloride (98-107) mmol/L Carbon Dioxide (21-32) mmol/L Anion Gap (3-11) BUN (7-18) mg/dl Creatinine (0.6-1.4) mg/dl Est Cr Clr Drug Dosing ml/min Est GFR ( Amer) Est GFR (Non-Af Amer) BUN/Creatinine Ratio (10-20) Glucose (70-99) mg/dl Calcium (8.5-10.1) mg/dl Magnesium (1.8-2.4) mg/dl Total Bilirubin (0.2-1) mg/dl AST (15-37) U/L ALT (12-78) U/L Alkaline Phosphatase (45-117) U/L Troponin I (0-0.045) ng/ml Total Protein (6.4-8.2) gm/dl Albumin (3.4-5.0) gm/dl Globulin (2.5-4.0) gm/dl Albumin/Globulin Ratio (0.9-2) TSH (0.300-4.500) uIu/ml Urine Color Urine Appearance (Clear) Urine pH (4.5-7.5) Ur Specific [place] (1.000-1.030) Urine Protein (Negative) Urine Glucose (UA) (Negative) Urine Ketones (Negative) Urine Blood (Negative) Urine Nitrite (Negative) Urine Bilirubin (Negative) Urine Urobilinogen (Negative) Ur Leukocyte Esterase (Negative) SARS-CoV-2 Ag (Rapid) Negative (Negative) Imaging Data Attestation: I personally reviewed and interpreted this imaging study as follows: Radiologist's Impression: CTA CHEST: The pulmonary arterial tree is well opacified with contrast. No pulmonary emboli are identified. The thoracic aorta is nondilated. There is no aneurysm or dissection. The heart is not enlarged. No pericardial effusion. No mediastinal or axillary lymphadenopathy or mass. The lungs are well inflated and clear. No acute airspace infiltrates or consolidation is seen. No pneumothorax or pleural effusion. Moderate to severe multilevel degenerative changes throughout the mid to lower thoracic spine. There is partial visualization of instrumentation extending into the upper lumbar spine. No acute fracture or destructive bone lesion is seen. Radiologist: Khanh Ulrich MD ECG Data Attestation: I personally reviewed and interpreted this ECG as follows: Indication: + syncope Rate (beats per minute): 76 Rhythm: + normal sinus ECG Intervals/blocks: + Normal QRS ECG ST segments: + T-wave inversions (inferior) and + Nonspecific ST abnormalities (inferior and lateral) Change: the following changes noted (nonspecific ST changes noted in inferior and lateral leads, T wave inversions inferiorly) MDM Narrative Continuous playground monitor: Order was placed for continuous playground monitor. Patient was placed on the playground monitor. Patient was noted to be in normal sinus rhythm with occasional PACs at an initial rate of 108 bpm. The patient is a 64-year-old male who presents today for evaluation of a syncopal episode. Patient had a syncopal episode tonight and had an additional episode last week. In addition to this, he apparently had an episode where he woke up in the middle the night diaphoretic, nauseous and breathing heavily. Patient feeling well at this time, mild headaches which have been persistent since his syncopal episode and fall last week. He did have a CT of the head and neck performed at [place] which were negative. Labs here are mostly unremarkable, with no leukocytosis, anemia or concerning electrolyte abnormalities. Troponin is not elevated. D-dimer was found to be elevated and CTA of the chest performed which was negative for PE. EKG with some nonspecific ST changes, no ST elevation or arrhythmia. There were some EMS reports of possible A. fib, however patient has been in a normal sinus rhythm on arrival to the ED and there is no rhythm strip showing atrial fibrillation. Patient remained in normal sinus rhythm throughout his ED stay. I do feel that given multiple syncopal episodes, patient would benefit from inpatient stay. Case was discussed with the hospitalist service, who agreed to evaluate the patient for further care. Impression & Plan Syncopal episodes Discharge Plan Visit Data Chief Complaint: Syncope ED Provider: Khanh Abraham ED Midlevel Provider: Gretchen Zavaleta Discharge Problem: Syncopal episodes Patient Disposition: Admitted As Inpatient Condition: Good Discharge Instructions Interventions: ED Discharge Assessment Last Done: 01/21/20 01:37 Discharge Problem: Syncopal episodes Qualifiers: Syncope type: unspecified Qualified Code(s): R55 - Syncope and collapse
[2020-01-21] MEDS ORDERED: HEPARIN SODIUM/DEXTROSE 25,000 UNITS/500 ML BAG IV SCH (01:53)
[2020-01-21] MEDS ORDERED: ONDANSETRON INJ 2 MG/ML 2 ML VIAL IV PRN (01:53)
[2020-01-21] MEDS ORDERED: ACETAMINOPHEN 325 MG TAB PO PRN (01:53)
[2020-01-21] MEDS ORDERED: ALUMINUM/MAGNESIUM SUSP 30 ML UDC PO PRN (01:53)
[2020-01-21] MEDS ORDERED: POTASSIUM CHLORIDE CRTAB 20 MEQ TABCR PO ONE (01:53)
[2020-01-21] MEDS ORDERED: Heparin IV Low Dose *NO* Bolus IV SCH (01:59)
--- NOTE | 2020-01-21 07:10 | CT Scan Report ---
CT ANGIOGRAM OF THE CHEST CLINICAL HISTORY: syncope, elevated dimer POSSIBLE ACUTE PULMONARY EMBOLISM COMPARISON STUDY: No previous studies for comparison. TECHNIQUE: Following the IV administration of 95 mL of Optiray-320, CT angiogram of the thorax was pe rformed from the thoracic inlet to the lung bases utilizing the pulmonary embolus protocol. Images ar e reviewed in the axial, sagittal, and coronal planes. IV contrast was administered without complicat ion. MIP imaging was performed. A dose lowering technique was utilized adhering to the principles of ALARA. CT DOSE: 781.54 mGy.cm FINDINGS: Is a 13 mm right lobe hepatic hypodensity possibly representing a cyst Right hilar lymph nodes are the upper limits of normal in size. There is no pathologic mediastinal ly mphadenopathy. There was no evidence of thoracic aortic dilatation. There were no pulmonary artery filling defects to indicate acute pulmonary embolism. There are no pleural effusions. There is mild dependent atelectasis. There is no focal pulmonary cons olidation. There is a small hiatal hernia. There are moderately advanced degenerative changes in the spine. Postsurgical changes are also eviden t. There are prominent disc osteophyte complexes within the lower thoracic spine There is subpleural 3.5 mm right middle lobe pulmonary nodule. In a low-risk patient, no further foll ow-up is indicated. IMPRESSION: 1. No evidence of acute pulmonary embolism 2. No evidence of focal pulmonary consolidation ACT 112: Negative or not required by law. Electronically signed by: Mickey Holley M.D. 01/21/2020 7:09 AM
--- NOTE | 2020-01-21 07:12 | CT Scan Report ---
HEAD CT NONCONTRAST CT DOSE: 729.78 mGycm HISTORY: headache, reported hx of syncope and head trauma TECHNIQUE: Multiaxial CT images of the head were performed without the use of intravenous contrast. A utomated exposure control was utilized for this study. A dose lowering technique was utilized adheri ng to the principles of ALARA. Comparison: None. Findings: The paranasal sinuses and mastoid air cells are clear. The calvarium and skull base are int act. The ventricles and sulci are within normal limits. There is no mass, hematoma, midline shift, or acute infarct. Impression: No acute intracranial abnormality. ACT 112: Negative or not required by law. Electronically signed by: Geoffrey Mcadams M.D. 01/21/2020 7:10 AM
--- NOTE | 2020-01-21 07:31 | XRay Report ---
XR chest 1V portable HISTORY: Atypical Chest Pain COMPARISON: Chest 04/23/2016. FINDINGS: The lungs are clear. Cardiac silhouette is normal in size. No pleural effusions. No pneumot horax. Thoracolumbar spinal fusion hardware is partially visualized. IMPRESSION: No acute process. ACT 112: Negative or not required by law. Electronically signed by: Geoffrey Mcadams M.D. 01/21/2020 7:30 AM
[2020-01-21 08:09] LABS: Basophils # (auto) 0.02 K/uL (0-0.2); Basophils % (auto) 0.3 %; Eosinophils # (auto) 0.08 K/uL (0-0.5); Eosinophils % (auto) 1.4 %; Hematocrit (blood only) 42.5 % (42-52); Hemoglobin 14.9 g/dL (14.0-18.0); Immature Granulocytes # (auto) 0.01 K/uL (0.00-0.02); Immature Granulocytes % (auto) 0.2 %; Lymphocytes # (auto) 1.72 K/uL (1.2-3.4); Lymphocytes % (auto) 29.4 %; Mean Corpuscular Hemoglobin 31.4 pg (25-34); Mean Corpuscular Hgb Conc 35.1 g/dL (32-36); Mean Corpuscular Volume 89.7 fL (80-100); Mean Platelet Volume 9.7 fL (7.4-10.4); Monocytes # (auto) 0.49 K/uL (0.11-0.59); Monocytes % (auto) 8.4 %; Neutrophils # (auto) 3.53 K/uL (1.4-6.5); Neutrophils % (auto) 60.3 %; Platelet Count 153 K/uL (130-400); RDW Coefficient of Variation 12.6 % (11.5-14.5); RDW Standard Deviation 41.5 fL (36.4-46.3); Red Blood Count 4.74 M/uL (4.7-6.1); White Blood Count 5.85 K/uL (4.8-10.8)
[2020-01-21] MEDS: PANTOprazole 40 MG TAB PO SCH (08:10)
[2020-01-21] MEDS: POLYETHYLENE (MIRALAX) 17 GM PACK PO SCH (08:10)
[2020-01-21] MEDS: DULoxetine HCL 60 MG CAP PO SCH (08:10)
[2020-01-21] MEDS: LOSARTAN POTASSIUM 50 MG TAB PO SCH (08:10)
[2020-01-21 08:20] LABS: Partial Thromboplastin Ratio 0.9; Partial Thromboplastin Time 25.8 Seconds (21.0-31.0)
[2020-01-21 08:39] LABS: Alanine Aminotransferase 24 U/L (12-78); Albumin Level 3.4 gm/dl (3.4-5.0); Aspartate Aminotransferase 23 U/L (15-37); BUN Creatinine Ratio 19.6 (10-20); Blood Urea Nitrogen 20 mg/dl (7-18); Calcium 9.1 mg/dl (8.5-10.1); Carbon Dioxide 26 mmol/L (21-32); Chloride 110 mmol/L (98-107); Creatinine Clr Calc Pharmacy 85.5 ml/min; Est GFR (African American) 87.3; Est GFR (Non-African American) 75.3; Glucose 94 mg/dl (70-99); Potassium 4.1 mmol/L (3.5-5.1); Sodium 141 mmol/L (136-145)
[2020-01-21 08:47] LABS: Albumin Globulin Ratio 1.1 (0.9-2); Alkaline Phosphatase 76 U/L (45-117); Bilirubin,Total 0.5 mg/dl (0.2-1); Globulin 3.2 gm/dl (2.5-4.0); Total Protein 6.6 gm/dl (6.4-8.2)
[2020-01-21] MEDS ORDERED: lisinopril 20 MG TAB PO SCH (09:00)
[2020-01-21 09:24] LABS: Troponin I < 0.015 ng/ml (0-0.045)
--- NOTE | 2020-01-21 11:19 | Cardiology Consultation ---
Date of Consultation January 21, 2020 Assessment & Plan (1) Syncopal episodes: 2 of the episodes have characteristics consistent with vagally mediated syncope. He has a notable prodrome and feels quite poorly afterwards. What triggers these episodes is unclear. The second episode he described did not have a prodrome and is more concerning for an arrhythmia. My understanding is that his evaluation at [facility] was unremarkable. We are still waiting for his echocardiogram report, but I suspect this is normal. He does not have an exam consistent with severe valvular heart disease. There is some concern that he has paroxysmal atrial fibrillation. He does have some atrial ectopy and brief runs of atrial ectopy on telemetry monitoring. It is unclear if this was mistaken for atrial fibrillation or if he truly had atrial fibrillation at the time he was transported to the hospital. It is possible that he has episodes of atrial fibrillation which triggered a vagal response. Change in vagal tone is common when patients transition in and out of atrial fibrillation. Is also possible that he could have conversion pauses related to atrial fibrillation. This is all speculation, we have no documentation of atrial fibrillation or other arrhythmias. If his prior echocardiogram was normal as anticipated, I think his evaluation can be continued as an outpatient. I think he does require a period of ambulatory monitoring. I think he could be provided with a 30-day outpatient event monitor. He is welcome to follow-up in our clinic in a few weeks. Curiously, he is on both lisinopril and losartan for reasons that are not clear. I doubt this contributes to his syncopal episodes, this may contribute to periods of orthostasis that he also describes. History of Present Illness Reason for Consultation: Syncope Requesting Physician: Serg Attending Physician: Mumtaz Pina DO History of Present Illness The patient is a 64-year-old gentleman without a known history of cardiac disease who has been experiencing episodes of syncope. Patient has had occasional episodes of orthostatic symptoms. These are manifest by a sense of mild dizziness and lightheadedness when changing from a squatting or seated position to standing. These do not result in more severe symptoms and are not associated with syncope. The patient has been replacing a floor in his house and has had a few of these episodes while performing this activity. However, he has other more severe episodes to do resultant loss of consciousness. He is experienced 3 of these episodes over the past couple of weeks. On 2 occasions the episodes involved a prodrome of warmth and nausea. This was followed by significant dizziness and brief loss of consciousness. The patient also notes profuse sweating with these episodes. Afterwards he is quite fatigued. One episode of syncope however, did not involve a prodrome. Patient states that he was standing and fell to the ground without any warning. He was admitted to an outside facility for 2 days. He states that they felt he was possibly dehydrated or suffering "vagal" episodes. He has not been aware of palpitations, although his who is a nurse has had some difficulty taking his blood pressure and pulse on occasion. He was felt to have an abnormal rhythm by the online publisher who picked him up yesterday. Reportedly there is documentation of atrial fibrillation. Patient has not had this diagnosis previously This morning he is feeling somewhat fatigued. He is somewhat anxious about recurrent episodes. He has not been ambulatory much since admission. He continues to have a headache and neck pain. This been present for 2 weeks since his initial episode of syncope. He is an otherwise active individual who does not report exertional symptoms. He generally does not have limiting dyspnea. He has had episodes of chest pain in the past that were not exercise related. 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 Allergies Allergy/AdvReac Type Severity Reaction Status Date / Time gluten Allergy Unknown DIARRHEA-CELIAC Unverified 01/21/20 00:07 DISEASE nickel Allergy Unknown LOCAL Unverified 01/21/20 00:07 DERMATITIS Home Medications Medication Instructions Recorded Confirmed Type duloxetine 60 mg PO DAILY 01/21/20 01/21/20 History lisinopril 20 mg PO DAILY 01/21/20 01/21/20 History losartan 50 mg PO DAILY 01/21/20 01/21/20 History meclizine 25 mg PO TID PRN 01/21/20 01/21/20 History meloxicam 15 mg PO HS 01/21/20 01/21/20 History omeprazole 20 mg PO DAILY 01/21/20 01/21/20 History simvastatin 20 mg PO HS 01/21/20 01/21/20 History Patient History Medical History GERD (gastroesophageal reflux disease) High cholesterol HTN (hypertension) Social History Smoking Status: Unknown if ever smoked Hx Alcohol Use: No Hx Substance Use: No Preferred Language: French Communication Ability: Effective Window Installer Required: No Beliefs That Will Affect Care: None Current Living Situation: Family Feels Safe at Home: Yes Safety Concerns: Feels Safe At This Time Assistive Devices: Glasses Review of Systems Review of Systems: All systems reviewed & are unremarkable except as noted in HPI & below No recent gastrointestinal symptoms. No diarrhea. No abdominal pain. No swelling in the lower extremities. Some tingling in the tips of his toes. Physical Exam Physical Exam: The patient is alert and oriented. Mood and affect appeared normal. He answered all questions appropriately. HEENT: Pupils are equal and reactive to light and accommodation. Extraocular movements are intact. The sclerae are anicteric. Neuro: Cranial nerves intact Neck: Patient's neck is supple. He has palpable carotid pulses bilaterally wit hout bruits on auscultation. There is no evidence of jugular venous distention. The thyroid is not enlarged. Lungs: Clear to auscultation bilaterally. He has good air movement without use of accessory muscles. No rales wheezes or rhonchi. Cardiac: Heart demonstrates a regular rate and rhythm. Normal S1 and S2. No murmurs on examination. Pulses: The patient has palpable radial pulses bilaterally that are equal in intensity Extremities: There was no evidence of hypoperfusion. There is no cyanosis or clubbing. There is no edema. Skin: I did not appreciate any rashes on examination today. Results & [facility]) Vital Signs (Past 12 Hours) Vital Signs Temp Pulse Pulse Resp BP BP BP 01/21/20 08:25 36.8 C 74 18 125/69 01/21/20 08:00 69 01/21/20 03:30 36.9 C 82 18 143/89 H 01/21/20 02:34 84 01/21/20 01:53 01/21/20 01:45 36.9 C 73 17 173/113 H 01/21/20 01:18 88 16 150/94 H 01/21/20 00:52 99 H 162/98 H 01/21/20 00:36 96 H 18 162/87 H Pulse Ox Pulse Ox 01/21/20 08:25 98 01/21/20 08:00 01/21/20 03:30 98 01/21/20 02:34 01/21/20 01:53 98 01/21/20 01:45 96 01/21/20 01:18 96 01/21/20 00:52 01/21/20 00:36 96 Laboratory Results Abnormal Lab Results 01/20/20 01/20/20 01/20/20 20:57 20:57 20:57 WBC 8.73 RBC 5.01 Hgb 15.9 Hct 44.2 MCV 88.2 MCH 31.7 MCHC 36.0 RDW Std Deviation 40.4 RDW Coeff of Renetta 12.6 Plt Count 176 MPV 10.0 Immature Gran % (Auto) 0.2 Neut % (Auto) 74.1 Lymph % (Auto) 19.0 [place] % (Auto) 6.3 Eos % (Auto) 0.2 Baso % (Auto) 0.2 Neut # (Auto) 6.46 Lymph # (Auto) 1.66 [place] # (Auto) 0.55 Eos # (Auto) 0.02 Baso # (Auto) 0.02 Immature Gran # (Auto) 0.02 PT 10.3 INR 1.0 APTT 26.9 PTT Ratio 1.0 D-Dimer Sodium 141 Potassium Chloride 106 Carbon Dioxide 27 Anion Gap 8.0 BUN 22 H Creatinine 1.37 Est Cr Clr Drug Dosing 66.0 Est GFR ( Amer) 61.9 Est GFR (Non-Af Amer) 53.4 BUN/Creatinine Ratio 15.8 Glucose 109 H Calcium 9.6 Magnesium Total Bilirubin 0.8 AST ALT 29 Alkaline Phosphatase 85 Troponin I < 0.015 Total Protein 7.6 Albumin 4.0 Globulin 3.6 Albumin/Globulin Ratio 1.1 TSH Urine Color Urine Appearance Urine pH Ur Specific [place] Urine Protein Urine Glucose (UA) Urine Ketones Urine Blood Urine Nitrite Urine Bilirubin Urine Urobilinogen Ur Leukocyte Esterase SARS-CoV-2 Ag (Rapid) 01/20/20 01/20/20 01/20/20 20:57 22:35 22:35 WBC RBC Hgb Hct MCV MCH MCHC RDW Std Deviation RDW Coeff of [place] Plt Count MPV Immature Gran % (Auto) Neut % (Auto) Lymph % (Auto) [place] % (Auto) Eos % (Auto) Baso % (Auto) Neut # (Auto) Lymph # (Auto) [place] # (Auto) Eos # (Auto) Baso # (Auto) Immature Gran # (Auto) PT INR APTT PTT Ratio D-Dimer 660 H* Sodium Potassium 3.8 Chloride Carbon Dioxide Anion Gap BUN Creatinine Est Cr Clr Drug Dosing Est GFR ( Amer) Est GFR (Non-Af Amer) BUN/Creatinine Ratio Glucose Calcium Magnesium 2.2 Total Bilirubin AST 25 ALT Alkaline Phosphatase Troponin I Total Protein Albumin Globulin Albumin/Globulin Ratio TSH 1.140 Urine Color Yellow Urine Appearance Clear Urine pH 8.0 H Ur Specific [place] 1.010 Urine Protein Negative Urine Glucose (UA) Negative Urine Ketones Negative Urine Blood Negative Urine Nitrite Negative Urine Bilirubin Negative Urine Urobilinogen Negative Ur Leukocyte Esterase Negative SARS-CoV-2 Ag (Rapid) 01/21/20 01/21/20 01/21/20 00:26 07:50 07:50 WBC 5.85 RBC 4.74 Hgb 14.9 Hct 42.5 MCV 89.7 MCH 31.4 MCHC 35.1 RDW Std Deviation 41.5 RDW Coeff of [place] 12.6 Plt Count 153 MPV 9.7 Immature Gran % (Auto) 0.2 Neut % (Auto) 60.3 Lymph % (Auto) 29.4 [place] % (Auto) 8.4 Eos % (Auto) 1.4 Baso % (Auto) 0.3 Neut # (Auto) 3.53 Lymph # (Auto) 1.72 [place] # (Auto) 0.49 Eos # (Auto) 0.08 Baso # (Auto) 0.02 Immature Gran # (Auto) 0.01 PT INR APTT 25.8 PTT Ratio 0.9 D-Dimer Sodium Potassium Chloride Carbon Dioxide Anion Gap BUN Creatinine Est Cr Clr Drug Dosing Est GFR ( Amer) Est GFR (Non-Af Amer) BUN/Creatinine Ratio Glucose Calcium Magnesium Total Bilirubin AST ALT Alkaline Phosphatase Troponin I Total Protein Albumin Globulin Albumin/Globulin Ratio TSH Urine Color Urine Appearance Urine pH Ur Specific [place] Urine Protein Urine Glucose (UA) Urine Ketones Urine Blood Urine Nitrite Urine Bilirubin Urine Urobilinogen Ur Leukocyte Esterase SARS-CoV-2 Ag (Rapid) Negative 01/21/20 07:50 WBC RBC Hgb Hct MCV MCH MCHC RDW Std Deviation RDW Coeff of [place] Plt Count MPV Immature Gran % (Auto) Neut % (Auto) Lymph % (Auto) [place] % (Auto) Eos % (Auto) Baso % (Auto) Neut # (Auto) Lymph # (Auto) [place] # (Auto) Eos # (Auto) Baso # (Auto) Immature Gran # (Auto) PT INR APTT PTT Ratio D-Dimer Sodium 141 Potassium 4.1 Chloride 110 H Carbon Dioxide 26 Anion Gap 5.0 BUN 20 H Creatinine 1.03 Est Cr Clr Drug Dosing 85.5 Est GFR ( Amer) 87.3 Est GFR (Non-Af Amer) 75.3 BUN/Creatinine Ratio 19.6 Glucose 94 Calcium 9.1 Magnesium Total Bilirubin 0.5 AST 23 ALT 24 Alkaline Phosphatase 76 Troponin I < 0.015 Total Protein 6.6 Albumin 3.4 Globulin 3.2 Albumin/Globulin Ratio 1.1 TSH Urine Color Urine Appearance Urine pH Ur Specific [place] Urine Protein Urine Glucose (UA) Urine Ketones Urine Blood Urine Nitrite Urine Bilirubin Urine Urobilinogen Ur Leukocyte Esterase SARS-CoV-2 Ag (Rapid) Diagnostic Findings Head CT and chest CT did not reveal any notable abnormalities. No evidence of PE. No evidence of intracranial process or fractures. ECG Additional Comments: EKG demonstrates normal sinus rhythm. PG Care Time/CCT Total # of Minutes Spent Total Time Spent with Patient: Total time spent is greater than 50% in coordination of care (as documented) at patient's floor/unit and/or counseling patient: Coding Level of Care Code 73636 Initial Inpt Care Lvl 3 Diagnoses Syncopal episodes R55 Syncope type: unspecified (1) Syncopal episodes Syncope type: unspecified Qualified Code(s): R55 - Syncope and collapse
--- NOTE | 2020-01-21 14:07 | Electrocardiogram Report ---
Test Reason : Blood Pressure : / mmHG Vent. Rate : 095 BPM Atrial Rate : 095 BPM P-R Int : 168 ms QRS Dur : 078 ms QT Int : 354 ms P-R-T Axes : 053 073 020 degrees QTc Int : 444 ms Poor data quality, interpretation may be adversely affected Normal sinus rhythm Possible Left atrial enlargement Nonspecific ST abnormality Abnormal ECG When compared with ECG of 23-APR-2016 17:28, T wave inversion now evident in Inferior leads Nonspecific T wave abnormality now evident in Lateral leads Confirmed by Tristan Ross ([id number]) on 01/21/2020 2:06:43 PM Referred By: REFERRED SELF Confirmed By:Sai Ross
--- NOTE | 2020-01-21 14:08 | Electrocardiogram Report ---
Test Reason : Blood Pressure : / mmHG Vent. Rate : 076 BPM Atrial Rate : 076 BPM P-R Int : 186 ms QRS Dur : 088 ms QT Int : 372 ms P-R-T Axes : 046 065 065 degrees QTc Int : 418 ms Normal sinus rhythm Nonspecific T wave abnormality Abnormal ECG When compared with ECG of 20-JAN-2020 20:51, (unconfirmed) Nonspecific T wave abnormality has replaced inverted T waves in Inferior leads Confirmed by Tristan Ross ([id number]) on 01/21/2020 2:08:10 PM Referred By: REFERRED SELF Confirmed By:Sai Ross
--- NOTE | 2020-01-21 19:07 | Hospitalist Progress Note ---
Date of Service January 21, 2020 Assessment & Plan (1) Syncope: Patient is a 58-year-old male with a past medical history of hypertension, GERD, arthritis, degenerative disc disease, hyperlipidemia, obesity, pain, and depression, with a ? remote history of epilepsy as a child. Patient relays a history of recent syncopal episodes. Syncope - ? vasovagal episodes with ? orthostatic hypotension component - Monitoring on telemetry - Labs from ED reviewed including normal electrolytes (Na 141 and K 3.8) - D-dimer was elevated at [address] showed no evidence of PE - Will consult cardiology - Per cardiology consult: 2 of his episodes are consistent with vagally mediated syncope. Waiting to review echo from [place] but if TTE was normal, can have outpatient cardiology f/u with plans to d/c home on event monitor - If patient remains stable, will likely plan for d/c home tomorrow ? Reported atrial fibrillation - No hx of atrial fibrillation - ? report of atrial fibrillation per EMS after patient's last syncopal episode - Patient did receive a one-time dose of IV 5mg metoprolol - Monitored on telemetry overnight and has been NSR since admission - Awaiting records from [facility] Anxiety - Continue home medication duloxetine 60mg po daily Hyperlipidemia - Continue simvastatin 20 mg p.o. at bedtime Hypertension - Continue home losartan 50 mg p.o. daily - Will discontinue the ordered (on admission) lisinopril 20 mg daily as patient clarified today that his losartan was ordered to replace the lisinopril last week GERD - Continue daily omeprazole Arthritis - Continue meloxicam 15 mg p.o. at bedtime FENa: Full diet Code Status: Full code Dispo: Telemetry (2) Anxiety: (3) Atrial fibrillation: (4) History of epilepsy: (5) HTN (hypertension): (6) High cholesterol: (7) Weak: (8) GERD (gastroesophageal reflux disease): Admission and Anticipated Discharge Date Admission Date: January 21, 2020 Supervising Physician Co-Signing Physician Notes Patient seen and examined with PGY-1 Dr. Lozano and PGY-3 Dr. Lambert. Marcia with history, exam findings, assessment and plan of care. In brief, Mr. Pierce is a 64M with history of HTN, HLD, and several recent episodes of syncope. He is admitted with a 3rd episode of syncope in a week. He was recently admitted to an outside hospital for work up of this. Per admitted robert gipson, this work up was unremarkable, but we are not able to view these records. Prior work up included an Echo that was reportedly normal. There is no family history of arrhythmia, HCOM, etc. There is a nephew who has what sounds like POTS. When EMS came to his home, they told him that he was in afib. Since he has been here, he has been in sinus rhythm. EKGs reviewed and unremarkable. Appreciate cardiology recommendationswill need 30-day event monitor as an outpatient. He also reports headache and a sense of feeling off balance after hitting his head after the first syncopal episode. CT Head on admission did not show a bleed. Neuro exam is normal. Other chronic medical issues are stable and home medications continued. To clarify, he is on losartan, NOT Lisinopril. The Lisinopril that was ordered on admission was discontinued. Dispo: discharge home tomorrow pending no arrhythmia noted on tele overnight. Subjective Mehrdad Pierce is a 64 yo male who was admitted to [facility] on 01/21/20 due to syncope. Patient states that he has had 3 distinct episodes of syncope over the past 1-2 weeks. He is able to thoroughly describe these episodes to us: 1. The first episode occurred after sitting on the floor playing with his dog, getting up and walking to the kitchen, and then when starting to walk back he had an acute onset of "feeling warm" prior to the syncope. Patient states that during the syncope he fell face-down on the ground; this was witnessed by his who states that he "was turning blue and not breathing." Patient's "hit [him] on the back and started breathing again." He was subsequently admitted at the [facility] where he states his workup was unremarkable and he was diagnosed with vagal episodes. 2. The second episode occurred a couple of nights ago during his sleep. Patient states that he was sleeping with his CPAP machine on when he "stopped breathing," his woke him up and he had a syncopal episode. 3. The third episode occurred yesterday just prior to arrival. Just prior to this episode, patient had a prodrome of feeling warm and dizzy before passing out; at this time, his "caught him" and helped lower him to the ground. Patient states that they called 911 for transport to the ED. While in the ambulance, patient states that the EMS crew identified atrial fibrillation on the monitor prior to arrival. Since being in the ED and [facility] and further on admission, patient has remained in normal sinus. He has had a negative chest CT, negative head CT, and normal CXR. This morning, patient states that he feels "okay." Patient does report a current headache, described as an ache at the top/frontal aspect of the head, rated at a 6/10, that has been present x1 week since the first syncopal episode. He has been taking 800mg Ibuprofen prn for the headache with some relief. The patient also complains of a generalized weakness sensation. He has no other complaints at this time. Patient denies fever, chills, CP, SOB, cough, abdominal pain, or vomiting. To note, patient discussed his symptoms with his PCP last week (on Sunday, 1 week ago), and at that time his BP medication was switched from lisinopril 20mg po daily to losartan 50mg po daily. He has not had any other medication changes. Patient's family history is remarkable for an early in his father - his father when patient was 3 years old. Patient states that his father while working drilling coal; the circumstances surrounding the incident are unclear and patient is not sure of the was associated with a medical condition or purely a work-related injury/. His mother has a hx of HTN. Patient also has a nephew in [place] with a hx of sudden syncope who was diagnosed with a medical condition after a positive tilt table test -- his symptoms are reportedly well controlled with medication. Patient has never been a smoker; occasional alcohol use. Review of Systems Constitutional: + weakness; no fever and no chills Respiratory: no cough and no dyspnea Cardiovascular: + syncope; no chest pain Gastrointestinal: no abdominal pain and no vomiting Physical Exam Physical Exam: GENERAL: No acute distress. Well developed and well nourished. EYES: EOMI. Anicteric sclerae. HENT: Moist mucous membranes. RESPIRATORY: Clear to auscultation bilaterally. No wheezing, rales, or rhonchi. CARDIOVASCULAR: Regular rate and rhythm. No murmurs. ABDOMEN: Soft, non-tender and non-distended. Normal bowel sounds. EXTREMITIES: No edema. Non-tender. SKIN: Warm, dry. No rashes or lesions. NEUROLOGIC: A/Ox3. focal neurological deficits. PSYCHIATRIC: Cooperative. Appropriate mood and affect. Results & Data Results & Data ([facility]) Vital Signs (Past 12 Hours) Vital Signs Temp Pulse Pulse Resp BP BP Pulse Ox 01/21/20 15:53 36.9 C 65 18 143/81 H 97 01/21/20 15:08 80 01/21/20 11:45 36.5 C 72 18 134/68 98 01/21/20 08:25 36.8 C 74 18 125/69 98 01/21/20 08:00 69 Resident Activity Tracking Resident Involvement: Resident Care Provided Care Provided: Adult Hospital Medicine
[2020-01-21] MEDS ORDERED: IBUPROFEN 600 MG TAB PO PRN (20:34)
[2020-01-21] MEDS ORDERED: IBUPROFEN 600 MG TAB PO ONE (20:48)
[2020-01-21] MEDS ORDERED: SIMVASTATIN 20 MG TAB PO SCH (21:00)
[2020-01-21] MEDS ORDERED: MELOXICAM 7.5 MG TAB PO SCH (21:00)
--- NOTE | 2020-01-21 21:47 | Billing Data ---
Date of Service January 21, 2020 Coding Level of Care Code 45035 OBS Care - Level 3
[2020-01-21] MEDS ORDERED: SUMAtriptan succinate 100 MG TAB PO ONE (23:13)
[2020-01-22 07:25] LABS: Partial Thromboplastin Ratio 0.9; Partial Thromboplastin Time 26.2 Seconds (21.0-31.0)
[2020-01-22] MEDS: PANTOprazole 40 MG TAB PO SCH (08:10)
[2020-01-22] MEDS: DULoxetine HCL 60 MG CAP PO SCH (08:10)
[2020-01-22] MEDS: LOSARTAN POTASSIUM 50 MG TAB PO SCH (08:11)
[2020-01-22] MEDS: POLYETHYLENE (MIRALAX) 17 GM PACK PO SCH (08:11)
--- NOTE | 2020-01-22 16:34 | Discharge Summary ---
Date of Service January 22, 2020 Admission HPI Per Admitting Provider Patient is a 58-year-old male with a past medical history of hypertension, GERD, arthritis, degenerative disc disease, hyperlipidemia, obesity, pain, depression, with a remote history of epilepsy as a child. Patient relays a history to me of recent syncopal episodes. He reports the first syncopal episode happened on January 11. At that time he was sitting on the ground playing with his dog, he got up to take the dog outside and had a syncopal episode. During the episode he reportedly fell to the floor, his ran to him, noted he was not breathing, began smacking his back. Eventually he regained consciousness. He did not describe any postictal symptoms, nor other symptoms that would suggest the cause of his syncopal episode. He had presented to the [facility] at that point who evaluated him for the syncopal episode. He had a negative work- up at [facility], and was admitted overnight. Given his negative work-up, the physicians felt as if it was caused by his Viagra and an orthostatic episode. He returned home and was doing well, approximately 2 nights ago he had an episode in the middle the night where he was breathing heavy, his woke him up, he was sweaty and hot, he went back to sleep at night without any issues. Earlier today he was in his usual state of health when he experienced a syncopal episode and subsequently presented to our emergency department. In route to the emergency department the EMS team noted that the patient was in atrial fibrillation. Upon arrival to the emergency department he was examined, and no focal findings were identified. lab work was performed demonstrating a normal CBC, and elevated D-dimer to 660, normal Chem-7, normal liver function studies, and normal urine. Preliminary wet read for chest CTA is negative for embolus chest x-ray is negative as well. EKG demonstrated normal sinus rhythm with a rate of 100, pressures are 158/91. Patient was administered 1 L of sodium chloride. Upon reviewing the history with the patient he did identify that he was previously treated for epilepsy well in high school, he does not remember significant details, and remembers weaning himself off the medicine. The patient does not follow with a batch room technician he was opposed to see when tomorrow. Given the patient's multiple syncopal episodes, the primary team was contacted for admission Primary Care Provider: Amna Thibodeaux Admission Exam Per Admitting Provider General: In no acute distress, lying in bed HEENT: Normocephalic atraumatic Neck: Normal to visual inspection, trachea midline Cardiac: normal S1, normal S2, I did not appreciate any significant murmurs, rubs, gallops, negative pedal edema, negative calf tenderness Respiratory: Clear to auscultation bilaterally with symmetrical chest expansion bilaterally, I did not appreciate significant wheezes, rales, rhonchi GI: Soft, nontender, nondistended, bowel sounds present in all 4 quadrants MSK: Moves all extremities Skin: Warm dry intact Neuro: Alert and oriented x4, CN II through XII grossly intact, strength grossly intact, sensation grossly intact, cerebellar function grossly intact Psych: Normal affect, cooperative Principal Diagnosis syncope Discharge Exam GENERAL: No acute distress. Well developed and well nourished. Vital signs reviewed. EYES: EOMI. Anicteric sclerae. HENT: Moist mucous membranes. RESPIRATORY: Clear to auscultation bilaterally. No wheezing, rales, or rhonchi. CARDIOVASCULAR: Regular rate and rhythm. No murmurs. ABDOMEN: Soft and non-tender. Normal bowel sounds. EXTREMITIES: No edema. Non-tender. NEUROLOGIC: A/O x3. PSYCHIATRIC: Cooperative. Appropriate mood and affect. Discharge Data Allergies Allergy/AdvReac Type Severity Reaction Status Date / Time gluten Allergy Unknown DIARRHEA-CELIAC Unverified 01/21/20 00:07 DISEASE nickel Allergy Unknown LOCAL Unverified 01/21/20 00:07 DERMATITIS Consultations 01/21/20 01:53 Consult Cardiology Routine Ordered Studies 01/20/20 23:03 CT angio chest PE protocol Urgent 01/21/20 03:12 CT head/brain wo con Urgent Hospital Course (1) Syncope: Patient is a 58-year-old male with a past medical history of hypertension, GERD, arthritis, degenerative disc disease, hyperlipidemia, obesity, pain, and depression, with a ? remote history of epilepsy as a child. Patient relays a history of recent syncopal episodes. Syncope - ? vasovagal episodes with ? orthostatic hypotension component - Monitoring on telemetry - Labs from ED reviewed including normal electrolytes (Na 141 and K 3.8) - D-dimer was elevated at [address] showed no evidence of PE - Will consult cardiology - Per cardiology consult: 2 of his episodes are consistent with vagally mediated syncope. Waiting to review echo from [facility] but if TTE was normal, can have outpatient cardiology f/u with plans to d/c home on event monitor - Patient has remained stable since admission. Tele reviewed and patient has been in NSR with rates in 60s-70s. - Plan for d/c home tonight with plans for 30 day event monitor; event monitor will be shipped to patient's house. - Patient to f/u with cardiology as outpatient - Patient to f/u with PCP in 1 week Headache - Patient complaining of headache that has been persistent since first syncopal episode resulting in fall and head trauma - ? post-concussive syndrome - Ibuprofen and Tylenol have not mitigated headache - Patient received 1 dose of Imitrex 100mg last night with full resolution of headache - Patient requesting a few doses of Imitrex as abortive medication if headache were to recur, will give patient 5 tabs of Imitrex 50mg ? Reported atrial fibrillation - No hx of atrial fibrillation - ? report of atrial fibrillation per EMS after patient's last syncopal episode - Patient did receive a one-time dose of IV 5mg metoprolol - Monitored on telemetry overnight and has been NSR since admission - Unable to review records from [facility] prior to discharge - patient to f/u with cardiology and PCP in outpatient Anxiety - Continue home medication duloxetine 60mg po daily Hyperlipidemia - Continue simvastatin 20 mg p.o. at bedtime Hypertension - Continue home losartan 50 mg p.o. daily - Will discontinue the ordered (on admission) lisinopril 20 mg daily as patient clarified today that his losartan was ordered to replace the lisinopril last week GERD - Continue daily omeprazole Arthritis - Continue meloxicam 15 mg p.o. at bedtime FENa: Full diet Code Status: Full code (2) Anxiety: (3) Atrial fibrillation: (4) History of epilepsy: (5) HTN (hypertension): (6) High cholesterol: (7) Weak: (8) GERD (gastroesophageal reflux disease): Total Time Total Time Spent Total Time Spent (In Minutes): See attending attestation Discharge Plan Discharge Items Patient Disposition: Home - Self-Care Reason For Visit: syncope Discharge Diagnosis: syncope Condition on Discharge: Good Activity: Per Instructions section Non-emergency contact: Primary Care Provider and Peer Financial Counselor Call non-emergency contact if: you have any medication questions, your symptoms worsen, your pain is not controlled, your pain is worsening and you have a fever Follow-up/Referrals: Ortiz Ross MD [Physician] - Amna Thibodeaux D.O. [Primary Care Provider] - Diet: Regular Addtl Attending Provider Instructions: Mr. Pierce, It was our pleasure to care for you at [facility] from 01/21/20 - 01/22/20. You were seen and evaluated after having a syncopal (passing out) episode at home. We have been monitoring your heart rate and rhythm on a monitor and there have been no abnormalities. You were seen by Dr. Ross, batch room technician, who recommended that you have an event monitor as an outpatient to monitor your heart rate and rhythm for the next 30 days. The event monitor will be delivered to your home. If you were to have a syncopal episode, please call the batch room technician first. Follow up with the batch room technician as scheduled. While you were here, we treated your concern of headache with Imitrex. This resolved your headache. As requested, I have written a script for you to have 5 tablets of Imitrex to use as needed. Please follow up with your primary care doctor within 1 week. Please call your primary care physician or the batch room technician with any questions. Pending Studies at Discharge: No Stand-Alone Forms: My [facility] Datamars, Smoking Cessation Medications and DC Order Prescriptions: New sumatriptan succinate [Imitrex] 50 mg tablet See Rx Instructions .ROUTE .COMPLEX Qty: 5 RF: 0 Continued losartan 50 mg tablet 50 mg PO DAILY RF: 0 lisinopril 20 mg tablet 20 mg PO DAILY RF: 0 meclizine 25 mg tablet 25 mg PO TID PRN (Reason: dizziness,nausea) RF: 0 simvastatin 20 mg tablet 20 mg PO HS RF: 0 meloxicam 15 mg tablet 15 mg PO HS RF: 0 omeprazole 20 mg capsule,delayed release(DR/EC) 20 mg PO DAILY RF: 0 duloxetine 60 mg capsule,delayed release(DR/EC) 60 mg PO DAILY RF: 0 Discharge Orders: Discharge Order (Routine); Ordered 01/22/20 Ordered By: Laura Lozano Admission Data Admit Date/Time: 01/21/20 01:19 Attending Provider: Mumtaz Pina Admit Provider: Beni Ulrich I. Primary Care Provider: Amna Thibodeaux Other Providers: Dc Rico ; Giovanni De La Rosa ; Zain Raines ; Roberto Hampton ; Long Watson ; Jose Vazquez Jr ; Ryland León ; Laquita Murrell ; Kaci Fountain ; Ortiz Thakur ; Ortiz Ross ; Rebel Lange ; Clifford Dunham ; Myrna Cervantes ; Antonette Ngo ; Murphy Mendoza ; Serg Aj ; Daniel Lazo Other Interventions: Discharge Summary Assessment (RN) Last Done: 01/22/20 16:00 Supervising Physician Co-Signing Physician Notes Patient seen and examined with PGY-1 Dr. Lozano. Marcia with history, exam findings, assessment and plan of care. In brief, Mr. Pierce is a 64M with history of HTN, HLD, and several recent episodes of syncope. He is admitted with a 3rd episode of syncope in a week. He was recently admitted to an outside hospital for work up of this. Per admitted notes, this work up was unremarkable, but we are not able to view these records. Prior work up included an Echo that was reportedly normal. There is no family history of arrhythmia, HCOM, etc. There is a nephew who has what sounds like POTS. When EMS came to his home, they told him that he was in afib. Since he has been here, he has been in sinus rhythm. EKGs reviewed and unremarkable. Appreciate cardiology recommendationswill need 30-day event monitor as an outpatient--this has already been ordered. May be that the vasovagal episodes are him transition to afib, but since he has not had any episodes here it is difficult to know the exact etiology. Event monitor will be very helpful for elucidating origin of syncope. He also reports headache and a sense of feeling off balance after hitting his head after the first syncopal episode. CT Head on admission did not show a bleed. Neuro exam is normal. Headache resolved after imitrex yesterday. Other chronic medical issues are stable and home medications continued. To clarify, he is on losartan, NOT Lisinopril. The Lisinopril that was ordered on admission was discontinued. Dispo: discharge home today. I personally spent 35 minutes discharge planning for this patient. Resident Activity Tracking Resident Involvement: Resident Care Provided Care Provided: Adult Hospital Medicine
== END 2020-01-22 17:28 | disposition home or self-care (01) ==
LOC: 2S 20:43 → ED 20:43 → SUATTDRO 01-21 01:19 → 2S 01-21 01:37

== ENCOUNTER 2024-09-08 07:37 | Inpatient (IN) ==
--- NOTE | 2024-08-07 14:23 | PAT Medication Instructions ---
Medication Instructions Date of Service August 07, 2024 Home Medications duloxetine 60 mg capsule,delayed release (Cymbalta) 60 mg PO HS omeprazole 20 mg capsule,delayed release 20 mg PO QAM Acid Reflux simvastatin 20 mg tablet 20 mg PO HS cholecalciferol (vitamin D3) 50 mcg (2,000 unit) capsule 50 mcg PO QAM sumatriptan succinate 50 mg tablet (Imitrex) 50 mg PO UD PRN Headache doxycycline hyclate 100 mg tablet 100 mg PO UD PRN rosacea hydrocodone 10 mg-acetaminophen 325 mg tablet 1 - 2 tab PO Q8H PRN Pain losartan 100 mg-hydrochlorothiazide 12.5 mg tablet 1 tab PO QAM meloxicam 15 mg tablet 15 mg PO QAM tadalafil 10 mg tablet (Cialis) 10 mg PO DAILY PRN ASK your surgeon for instructions meloxicam 15 mg tablet 15 mg PO QAM DO NOT take the morning of surgery cholecalciferol (vitamin D3) 50 mcg (2,000 unit) capsule 50 mcg PO QAM losartan 100 mg-hydrochlorothiazide 12.5 mg tablet 1 tab PO QAM tadalafil 10 mg tablet (Cialis) 10 mg PO DAILY PRN Take morning of surgery With a small sip of water, OTHERWISE NOTHING TO EAT OR DRINK AFTER MIDNIGHT: omeprazole 20 mg capsule,delayed release 20 mg PO QAM Acid Reflux (if needed) sumatriptan succinate 50 mg tablet (Imitrex) 50 mg PO UD PRN Headache (if needed) doxycycline hyclate 100 mg tablet 100 mg PO UD PRN rosacea (if needed) hydrocodone 10 mg-acetaminophen 325 mg tablet 1 - 2 tab PO Q8H PRN Pain (if needed) Take evening before surgery duloxetine 60 mg capsule,delayed release (Cymbalta) 60 mg PO HS simvastatin 20 mg tablet 20 mg PO HS sumatriptan succinate 50 mg tablet (Imitrex) 50 mg PO UD PRN Headache (if needed) doxycycline hyclate 100 mg tablet 100 mg PO UD PRN rosacea (if needed) hydrocodone 10 mg-acetaminophen 325 mg tablet 1 - 2 tab PO Q8H PRN Pain (if needed) Other Notes If you have any questions please call us at [phone] or [phone] or [phone] or [phone]
--- NOTE | 2024-08-12 13:58 | Anesthesiology Consultation ---
Date of Service August 12, 2024 Assessment & Plan (1) Encounter for pre-operative examination: Plan - Medtronic pacemaker. - surgeon ordered PCP pre-operative evaluation, 08/13/24 Dr. Laquita Chapman. - surgeon ordered cardiology pre-operative evaluation 09/04/24 [facility], abnormal pre-op EKG is visible in EMR for that provider, workload note also sent. - abnormal T&S: Kavon with blood bank advised patient should arrive an additional hour early day of surgery and that nothing further is needed from PAT. OR made aware. Chart Review Chart Review: Pending: Refer to Additional Notes / Consult section and Patient seen in Pre Admission Testing Teaching & Discussion Pre-Anesthesia Teaching/Discussion Notes: Instructed NPO after midnight before surgery, except medications with 15 cc of water. Medication instructions provided according to the PAT guidelines. History Surgery Operation Date: 09/08/24 10:05 Proposed Procedures p C3-C5 Anterior Cervical Discectomy and Fusion with Spinal Cord Monitoring - Philip De La Cruz DO Height/Weight Height: 5 ft 10.5 in Weight: 108.9 kg Allergies Allergy/AdvReac Type Severity Reaction Status Date / Time nickel Allergy Mild Local Verified 08/07/24 13:22 dermatitis gluten AdvReac Intermediate Diarrhea Verified 08/07/24 13:22 (celiac disease) ciprofloxacin [From Cipro] AdvReac Mild Upset Verified 08/07/24 13:22 stomach Medications Home Medications Medication Instructions Recorded Confirmed Last Taken duloxetine 60 mg capsule,delayed 60 mg PO HS 01/21/20 08/07/24 11/15/21 21:00 release (Cymbalta) omeprazole 20 mg capsule,delayed 20 mg PO QAM Acid Reflux 01/21/20 08/07/24 11/16/21 03:40 release simvastatin 20 mg tablet 20 mg PO HS 01/21/20 08/07/24 11/15/21 21:00 cholecalciferol (vitamin D3) 50 50 mcg PO QAM 04/19/20 08/07/24 11/07/21 08:00 mcg (2,000 unit) capsule sumatriptan succinate 50 mg tablet 50 mg PO UD PRN Headache 08/03/21 08/07/24 Unknown (Imitrex) doxycycline hyclate 100 mg tablet 100 mg PO UD PRN rosacea 08/07/24 08/07/24 Unknown hydrocodone 10 mg-acetaminophen 1 - 2 tab PO Q8H PRN Pain 08/07/24 08/07/24 Unknown 325 mg tablet losartan 100 1 tab PO QAM 08/07/24 08/07/24 Unknown mg-hydrochlorothiazide 12.5 mg tablet meloxicam 15 mg tablet 15 mg PO QAM 08/07/24 08/07/24 Unknown tadalafil 10 mg tablet (Cialis) 10 mg PO DAILY PRN . 08/07/24 08/07/24 Unknown Past Medical History Medical History (Updated 08/12/24 @ 14:02 by Bella Hutchins PA-C) Anxiety and depression Atrial fibrillation Dr. Ross BPH (benign prostatic hyperplasia) Degenerative disc disease GERD (gastroesophageal reflux disease) controlled, stable per pt History of blood transfusion [place]-operative for back surgery History of pacemaker syncopal episode>Implanted 2020, [employer] (last checked 2023) History of seizure Epilepsy, most recent seizure approximately 50+ years ago, no issues since History of skin cancer s/p excision Hypertension controlled, stable per pt Obesity Rosacea Sleep apnea CPAP-compliant Spinal stenosis Patient denies h/o stroke, heart attack, heart failure, DM, or blood clots/DVTs. Exercise / Class Metabolic Activity II 4-5 Yardwork/Stairs/Walk up hill (denies chest discomfort or shortness of breath with one flight of stairs) Past Family History Family History Sister Family history of diabetes mellitus Other No family history of adverse response to anesthesia Past Surgical History Surgical History (Updated 08/12/24 @ 14:04 by Bella Hutchins PA-C) H/O bilateral cataract extraction History of anesthesia reaction had hicups for 1 week after lumbar surgery History of arthroscopy right shoulder History of cardiac cath 1997 > no stents 2001 > no stents History of colonoscopy History of fusion of cervical spine x2 (Mild cervical extension limitations per pt) History of lumbar fusion x3 History of tooth extraction History of total knee replacement (11/16/21) right Hx of arthroscopic knee surgery x3 total Right knee arthroscopy (08/08/21): LMA#5.0, atraumatic at [facility]. No issues noted per post-op anesthesia progress note. Hx of blepharoplasty Past Anesthesia History No Family Hx of Anesthesia Complications and Other (see above) History of PONV No Hx of PONV and No Hx of Motion Sickness Social History Smoking Status: Never smoker Do You Dip or Chew Tobacco: No (quit 1989) Hx Alcohol Use: Yes Alcohol type: beer alcohol intake frequency: a few times a week substance use type: does not use Review of Systems Patient denies chest pain, shortness of breath, dyspnea on exertion, fever, chills, cough, wheezing, or palpitations. Physical Exam Vital Signs Vitals BP 127/76 P 84 TEMP 97.9 SP02 98% on RA RESP 18 Physical Patient resting comfortably in chair in no acute distress, alert and oriented, responding appropriately throughout visit Full cervical extension range of motion without pain TMD 3.5 finger breadths Mallampati Score 3 Dentition: several caps/crowns and permanent upper bridge, denies chipped or loose teeth, or implants Lungs: normal respiratory effort. Good air movement, clear throughout to auscultation, no adventitious breath sounds Cardiac: regular rate and rhythm, no murmurs noted Carotid arteries: negative bruit bilat Lab Results Anesthesia Preop Results Results Anesthesia Widget: WBC 5.16 K/ul (4.8-10.8) 08/12/24 Hgb 15.4 g/dl (14.0-18.0) 08/12/24 Hct 44.0 % (42.0-52.0) 08/12/24 Plt 152 K/uL (130-400) 08/12/24 Na 142 mmol/L (136-145) 08/12/24 K 4.1 mmol/L (3.5-5.1) 08/12/24 Cl 106 mmol/L (98-107) 08/12/24 CO2 32 mmol/L (21-32) 08/12/24 BUN 22 mg/dl (6-23) 08/12/24 Creat 1.16 mg/dl (0.6-1.4) 08/12/24 Glucose Level 143 mg/dl (70-99(Fasting)) H 08/12/24 PT 10.3 Seconds (9.0-12.0) 08/12/24 PTT 26 Seconds (21-31) 08/12/24 INR 0.9 (0.9-1.1) 08/12/24 Urine Color Yellow 08/12/24 Urine Appearance Clear (Clear) 08/12/24 Urine pH 6.5 (4.5-7.5) 08/12/24 Urine Specific [place] 1.005 (1.000-1.030) 08/12/24 Urine Protein Negative (Negative) 08/12/24 Urine Glucose (UA) Negative (Negative) 08/12/24 Urine Ketones Negative (Negative) 08/12/24 Urine Blood Negative (Negative) 08/12/24 Urine Nitrite Negative (Negative) 08/12/24 Urine Bilirubin Negative (Negative) 08/12/24 Urine Urobilinogen Negative (Negative) 08/12/24 Urine Leukocyte Esterase Negative (Negative) 08/12/24 Blood Type O Positive 08/12/24 Antibody Screen POSITIVE A 08/12/24 Testing Electrocardiogram Date: 08/12/24 NSR, rate [address] & T wave abnormality, consider inferior ischemia Chest X-Ray Date: 08/12/24 No acute findings. Echocardiogram Date: 01/12/20 EF 60-65% Normal wall motion Grade I diastolic dysfunction No significant valvular abnormalities Stress Test Date: 01/05/21 Normal exercise echocardiogram without evidence of inducible ischemia No significant valvular heart disease METS 8.3 MPHR 94% EF 55-60% No evidence of wall motion abnormalities present Cervical Spine Date: 04/29/24 1. Advanced degenerative disc disease showing multilevel disc desiccation and bulges with facet joint arthropathy, hypertrophy of uncovertebral joints and posterior osteophytes causing neural foraminal, lateral recesses and central canal stenosis resulting in radicular compression of varying degrees, as detailed above. 2. As compared to the prior MR cervical spine dated April 05, 2023, there is no significant interval change noted as detailed above. Other Testing Pacemaker report 07/13/24 Medtronic AP 6.1% MANAGER VALUATION 5.8% Trending illustrates atrial events without EGMs AF burden < 0.1% 10 supraventricular events AAI DDD
[~2024-09-08 07:37] MED LIST changes: -ATV/1 PO; -CITA40TA12 PO; +DEXAMETHASONE SOD INJ 4 MG/ML VIAL ONE; -DOXY100C PO; -FLNIN NAE; +GLYCOPYRROLATE 0.2 MG/ML VIAL ONE; +LIDOCAINE 2% 2 ML VIAL/AMP(20MG/ML) INFIL ONE; +MIDAZOLAM HCL 1 MG/ML 2ML VIAL ONE; -OMEP20CA9 PO; +ONDANSETRON INJ 2 MG/ML 2 ML VIAL ONE; +PROPOFOL IV EMULSION 10 MG/ML 20 ML VIAL IV ONE; +ROCURONIUM BROMIDE 10 MG/ML 5 ML VIAL IV ONE; -SIMV20TA2 PO; +SUGAMMADEX SODIUM 200 MG/2 ML VIAL IV ONE
[2024-09-08] MEDS: ACETAMINOPHEN 500 MG TAB PO SCH ×2 (08:12→15:22)
[2024-09-08] MEDS: GABAPENTIN 300 MG CAP PO SCH (08:12)
[2024-09-08] MEDS: CeleBREX 200 MG CAP PO SCH (08:12)
[2024-09-08] MEDS: LR 60ML/HR IV SCH (08:12)
[2024-09-08] MEDS: LR 15ML/HR IV SCH (08:25)
[2024-09-08] MEDS ORDERED: ONDANSETRON INJ 2 MG/ML 2 ML VIAL IV PRN ×2 (09:34→13:17)
[2024-09-08] MEDS ORDERED: ATROPINE SULFATE 0.1 MG/ML 10ML SYR IV PRN (09:34)
[2024-09-08] MEDS ORDERED: HYDROmorphone INJ 2 MG/ML SYR/VIAL IV PRN (09:34)
[2024-09-08] MEDS ORDERED: PROMETHAZINE HCL 6.25 MG in SODIUM CHLORIDE 0.9% 50 ML IV PRN (09:34)
--- NOTE | 2024-09-08 09:35 | History & Physical Report ---
Date of Service September 08, 2024 Assessment & Plan (1) Cervical spondylosis with radiculopathy: Plan: C3-C5 anterior cervical discectomy and fusion History of Present Illness Chief Complaint: Neck and arm pain Primary Care Provider: Laquita Kuo DO This is a 69-year-old male who presents chronic persistent neck and arm pain of failing course of nonoperative care is here for surgical invention. Allergies Allergy/AdvReac Type Severity Reaction Status Date / Time nickel Allergy Mild Local Verified 09/08/24 07:54 dermatitis gluten AdvReac Intermediate Diarrhea Verified 09/08/24 07:54 (celiac disease) ciprofloxacin [From Cipro] AdvReac Mild Upset Verified 09/08/24 07:54 stomach Home Medications Medication Instructions Recorded Confirmed Type duloxetine 60 mg capsule,delayed 60 mg PO HS 01/21/20 09/08/24 History release (Cymbalta) omeprazole 20 mg capsule,delayed 20 mg PO QAM Acid Reflux 01/21/20 09/08/24 History release simvastatin 20 mg tablet 20 mg PO HS 01/21/20 09/08/24 History sumatriptan succinate 50 mg tablet 50 mg PO UD PRN Headache 08/03/21 09/04/24 History (Imitrex) doxycycline hyclate 100 mg tablet 100 mg PO UD PRN rosacea 08/07/24 09/08/24 History hydrocodone 10 mg-acetaminophen 1 - 2 tab PO Q8H PRN Pain 08/07/24 09/08/24 History 325 mg tablet losartan 100 1 tab PO QAM 08/07/24 09/08/24 History mg-hydrochlorothiazide 12.5 mg tablet meloxicam 15 mg tablet 15 mg PO QAM 08/07/24 09/08/24 History tadalafil 10 mg tablet (Cialis) 10 mg PO DAILY PRN . 08/07/24 09/08/24 History cholecalciferol (vitamin D3) 125 125 mcg PO DAILY 09/04/24 09/08/24 History mcg (5,000 unit) capsule Past Med/Surg History Problem List (Updated 09/08/24 @ 09:35 by Philip De La Cruz DO) Cervical spondylosis with radiculopathy Sinus arrest Primary osteoarthritis of right knee Encounter for pre-operative examination Supraventricular tachycardia HBP (high blood pressure) Pacemaker Medical History (Updated 09/08/24 @ 09:35 by Philip De La Cruz, DO) Degenerative disc disease Spinal stenosis Rosacea BPH (benign prostatic hyperplasia) Anxiety and depression History of blood transfusion [place]-operative for back surgery Hypertension controlled, stable per pt Obesity Sleep apnea CPAP-compliant History of skin cancer s/p excision History of seizure Epilepsy, most recent seizure approximately 50+ years ago, no issues since History of pacemaker syncopal episode>Implanted 2020, [employer] (last checked 2023) GERD (gastroesophageal reflux disease) controlled, stable per pt Atrial fibrillation Dr. Ross Surgical History History of arthroscopy right shoulder History of anesthesia reaction had hicups for 1 week after lumbar surgery History of tooth extraction H/O bilateral cataract extraction History of total knee replacement (11/16/21) right Hx of blepharoplasty Hx of arthroscopic knee surgery x3 total Right knee arthroscopy (08/08/21): LMA#5.0, atraumatic at [facility]. No issues noted per post-op anesthesia progress note. 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
--- NOTE | 2024-09-08 09:35 | History & Physical Bridge Note ---
Date of Service September 08, 2024 History & Physical Bridge Note I have examined the patient, reviewed the History & Physical and in the interval since the performance of the History & Physical I have noted the following changes of clinical significance: no changes noted
[2024-09-08] MEDS ORDERED: ROCURONIUM BROMIDE 10 MG/ML 5 ML VIAL IV ONE (10:24)
[2024-09-08] MEDS: ceFAZolin 330 MG/ML 1 GM VIAL ONE (11:27)
[2024-09-08] MEDS: FLOSEAL HEMOSTATIC MATRIX 10ML TOP ONE (11:29)
--- NOTE | 2024-09-08 11:36 | Operative Report ---
Post Operative Report Pre & Post Diagnosis Operation Date: 09/08/24 10:05 Pre-Op Diagnosis: Cervical Spondylosis with Radiculopathy Post-Op Diagnosis: Cervical Spondylosis with Radiculopathy I identified the patient and participated in the time-out.: Yes Procedure Operation Date: 09/08/24 10:05 Actual Procedures #1 anterior cervical discectomy with bilateral foraminotomies C3-C4 C4-C5. #2 anterior cervical arthrodesis C3-C4 C4-C5. #3 placement of Spira 7 mm cage C3- C4 and 9 mm cage C4-C5 both filled with os design. #4 placement of cage completed screws from C3-C5. Surgeon Philip De La Cruz, DO Supervisor Toy [employer] Shayla Hernandez Estimated Blood Loss 10 Findings Consistent with Post-Op Diagnosis Specimens none Indications This is a 69-year-old male presents above-mentioned diagnosis at the [place] since course of nonoperative care is here for surgical intervention. Description of Procedure Patient was met with identified informed consent obtained. Patient was then taken to the operative suite underwent intubation placed in supine position on the Jim table with head Vieyra hogshead head matcher. All bony prominences well- padded eyes inspected to ensure no external pressure placed upon them. This point the anterior cervical spine was prepped and draped in normal sterile fashion. With the assistance of fluoroscopy identified the C for vertebral body and a transverse incision was placed along the left anterior aspect of the cervical spine overlying his region. Blunt dissection with the assistance of bipolar electrocautery was performed down to and exposing the anterior cervical spine from C3-C5. A self-retaining tractor was placed. I then performed a complete discectomy of C3-C4 out to the uncovertebral joints bilaterally. [place] distracting pins utilized to assist in visualization. Removed all posterior annular fibers longitudinal ligament bilateral foraminotomies performed. Endplates burred to subcortical bleeding bone and a 7 mm Spira cage filled with os design bone graft tapped in position. Then proceeded to C4-C5. Again complete discectomy performed. Performed complete removal of the posterior annular fibers and longitude ligament. Endplates were then burred to subcortical bleeding bone and a 9 mm spiral cage filled with os design bone graft tapped in position. Distracting apparatus was removed. All anterior osteophytes burred to smooth cortical surface and a K2 M plate and screws applied with the assistance of fluoroscopy. The incision was then copiously irrigated explored to ensure no damage to surrounding structures or remaining bleeding. 10 round RICHARD drain inserted. The incision was then closed with 2 Vicryl in the fascia and a 4 Monocryl for final skin closure. Steri-Strips sterile dressing placed. Patient waken taken PACU stable condition. Please note spinal cord monitoring was utilized at the procedure no changes noted. Shayla Hernandez was present at the entire surgery involved the patient positioning complex portion of the surgery and final skin closure. Im ordering 10 grams of Collagen Powder ([facility] A6010 Primary Dressing) and 10 bordered super absorbent ([facility] A6196 Secondary Dressing) to treat an incision wound that was caused by a spine procedure. The incision is approximately 2 cm(W) x 4 cm(L) down to the spinal column and epidural space 2 cm (D) in size and is a full thickness wound showing no signs of infection. Collagen comes in 1 gram packets so 10 packets were ordered. Given the size of the wound, with moderate exudate I chose to order a 10 day supply. The patient will be provided instructions for proper application of the collagen wound kit. The patient will be asked to apply the collagen powder daily and then cover it with sterile dressings dispensed. Collagen was selected as I expect the collagen to attract monocytes and fibroblasts, act as a sacrificial substrate for MMPs, and ultimately proved a matrix for tissue and vessel growth. The collagen will act as a primary dressing in this scenario. It is medically necessary for proper healing of these wounds to improve bioavailability and contact with each wound surface, this is also to help prevent infection of wounds and promote healing ultimately leading to a better healing outcome and limit the risk of infection. I attest to the content of the Intraoperative Record and any orders documented therein. Any exceptions are noted below.
--- NOTE | 2024-09-08 12:43 | Fluoroscopy Report ---
FL cervical 2-3V CLINICAL HISTORY: C3-5 DISCECTOMY COMPARISON STUDY: None FLUOROSCOPY TIME: 16 seconds FLUOROSCOPY IMAGES: 3 EXPOSURE DOSE: 4 mGy FINDINGS: Fluoroscopy was provided for cervical spine fusion. IMPRESSION: Intraoperative fluoroscopy. ACT 112: Negative or not required by law. Electronically signed by: Tra Mike M.D. 09/08/2024 12:41 PM
[2024-09-08] MEDS ORDERED: ACETAMINOPHEN 1,000 MG/100 ML VIAL IV PRN (13:17)
[2024-09-08] MEDS ORDERED: FAMOTIDINE 20 MG TAB PO PRN (13:17)
[2024-09-08] MEDS ORDERED: LORazepam 0.5 MG TAB PO PRN (13:17)
[2024-09-08] MEDS ORDERED: RACEPINEPHRINE 2.25% NEBU SOLN 0.5 ML VIAL INH PRN (13:17)
[2024-09-08] MEDS ORDERED: NALOXONE HCL 0.4 MG/1 ML VIAL/CARP IV PRN (13:17)
[2024-09-08] MEDS ORDERED: dexAMETHasone 8 MG in SYRINGE 0 ML IV PRN (13:17)
[2024-09-08] MEDS ORDERED: MAGNESIUM HYDROXIDE SUSP 30 ML UDC PO PRN (13:17)
[2024-09-08] MEDS ORDERED: DO NOT ADMINISTER FLU VACCINE PRN (13:17)
[2024-09-08] MEDS ORDERED: SOD PHOSPHATE/SOD BIPHOSPHATE ENEMA 132 ML BTL PR PRN (13:17)
[2024-09-08] MEDS ORDERED: DO NOT ADMINISTER PNEUMOCOCCAL VACCINE PRN (13:17)
[2024-09-08] MEDS ORDERED: PROMETHAZINE 12.5 MG/50.5 ML BAG IV PRN (13:17)
[2024-09-08] MEDS ORDERED: ACETAMINOPHEN 500 MG TAB PO PRN (13:17)
[2024-09-08] MEDS ORDERED: METOCLOPRAMIDE HCL INJ 5 MG/ML 2 ML VIAL IV PRN (13:17)
[2024-09-08] MEDS ORDERED: diphenhydrAMINE Capsule 25 MG CAP PO PRN (13:17)
[2024-09-08] MEDS ORDERED: ALUMINUM/MAGNESIUM SUSP 30 ML UDC PO PRN (13:17)
--- NOTE | 2024-09-08 13:18 | Anesthesiology Progress Note ---
Date of Service September 08, 2024 Anesthesia Post Procedure Vital Signs Vital Signs: Temp Pulse Pulse Resp BP Pulse Ox O2 Del Method 09/08/24 12:55 104 H 14 143/88 H 100 Nasal Cannula 09/08/24 12:45 36.7 C 99 H 14 124/91 100 Nasal Cannula 09/08/24 12:35 90 14 134/88 100 Nasal Cannula 09/08/24 12:25 96 H 13 156/83 H 100 Nasal Cannula 09/08/24 12:15 90 16 153/85 H 97 Oxymask 09/08/24 12:05 94 H 15 140/84 100 Oxymask 09/08/24 11:55 90 18 152/94 H 100 Oxymask 09/08/24 11:45 36.3 C L 84 17 137/79 98 Oxymask 09/08/24 07:59 37 C 83 20 153/83 H 98 Room Air O2 Flow Rate 09/08/24 12:55 2 09/08/24 12:45 2 09/08/24 12:35 2 09/08/24 12:25 2 09/08/24 12:15 5 09/08/24 12:05 5 09/08/24 11:55 5 09/08/24 11:45 5 09/08/24 07:59 Pain Intensity Bilateral Neck: Pain Intensity: 4 Transfer of Care Handoff Completed per policy Notes Mental Status: alert / awake / arousable and participated in evaluation Patient Amnestic to Procedure: Yes Nausea / Vomiting: adequately controlled Pain: adequately controlled Airway Patency, RR, SpO2: stable & adequate BP & HR: stable & adequate Hydration State: stable & adequate Anesthetic Complications: no major complications apparent
[2024-09-08] MEDS: HYDROmorphone INJ 1 MG/ML SYRINGE IV PRN (13:28)
--- NOTE | 2024-09-08 13:34 | Consultation ---
Date of Consultation September 08, 2024 Assessment & Plan (1) Cervical spondylosis with radiculopathy: (2) Hypertension: (3) Sleep apnea: (4) Obesity: (5) History of pacemaker: Plan This is a 69 yr old M who has a significant PMH of HTN, HLD, hx of dual chambered pacemaker implantation in 2020 after loop recorder identified episodes of asystole, JAIME on CPAP who presents for elective cervical procedure by Dr. De La Cruz. He underwent a C3-C5 Discectomy and tolerated the procedure well. #Cervical Spondylosis with radiculopathy #S/P ACDF POD #0, EBL 10ml pain/wound management per ortho continuous O2 monitoring, currently requiring 2L while sleeping in setting known JAIME monitor post op hgb #HTN chronic, stable on losartan/HCTZ will hold HCTZ component until bps re eval in a.m., parameters placed on losartan #HLD chronic, stable continue statin #Hx of sinus arrest, dx on loop recorded s/p dual chambered pacemaker placed in 2020 #Sinus tachycardia likely 2/2 post op pain, some ectopy noted on exam; therefore will obtain ECG PACU reported sinus tachy prior to arrival to floor #JAIME on CPAP @ 9cmh20 #DVT ppx: per primary FULL CODE PCP: Ari Hooper PA Dispo: per primary Pt was seen and examined in collaboration with Dr. Vázquez, please see addendum I spent a total of 45 minutes coordinating, documenting and providing care for this patient excluding time spent in the performance of separately billed services or time spent by another provider/QHP. Thank you for this consultation. We will follow the patient with you during their hospital stay. You can reach a member of the [facility] Hospitalist Team 11/09 via hospitalist role on tiger text. Supervising Physician Co-Signing Physician Notes I have seen and discussed the case with the collaborating advanced practitioner. I agree with the above H&P. I have reviewed and confirmed the patients medical history, the findings on physical examination, and the patients diagnosis and treatment plan with Jim CHANEL and agree with the information documented. In short, Mr. Pierce is a 69 yo gentleman s/p ACDF. Patient with tachycardia s/p procedure, thought to be 2/2 ongoing pain. EKG with PACs noted, will continue to monitor. Ongoing analgesia prn, will schedule tylenol 1000mg q8h for baseline analgesia. Patient otherwise resting in bed with no acute distress. Agree with holding HCTZ at this time and hold parameters on Losartan. Plan as above. I spent a total of 15 minutes coordinating, documenting, and providing care for this patient excluding time spent in the performance of separately billed services. All of the aforementioned completed outside of collaborating with the assigned advanced practitioner for a full treatment plan. I have reviewed the advanced practitioner's documentation, and I agree with, and take responsibility for the plan of care History of Present Illness Requesting Physician: Dr. De La Cruz Reason for Consultation: Post op medical management Attending Physician: Philip De La Cruz, DO History of Present Illness This is a 69 yr old M who has a significant PMH of HTN, HLD, hx of dual chambered pacemaker implantation in 2020 after loop recorder identified episodes of asystole, JAIME on CPAP who presents for elective cervical procedure by Dr. De La Cruz. He underwent a C3-C5 Discectomy and tolerated the procedure well. Post operatively he is having posterior neck pain 09/28. He recently got analgesia, but has not yet taken effect. He denies any radicular sx. Denies f/c/s, chest pain, sob, cough, n/v/d, abd pain. He denies smoking/tobacco or significant alcohol use. He follows with Dr. Ross of [facility] cards in regards to his hx of syncope in setting of sinus arrest. and family member at bedside also help elicit history. He is mostly drowsy, but easily arouses to verbal questioning. Allergies Allergy/AdvReac Type Severity Reaction Status Date / Time nickel Allergy Mild Local Verified 09/08/24 07:54 dermatitis gluten AdvReac Intermediate Diarrhea Verified 09/08/24 07:54 (celiac disease) ciprofloxacin [From Cipro] AdvReac Mild Upset Verified 09/08/24 07:54 stomach Home Medications Medication Instructions Recorded Confirmed Type duloxetine 60 mg capsule,delayed 60 mg PO HS 01/21/20 09/08/24 History release (Cymbalta) omeprazole 20 mg capsule,delayed 20 mg PO QAM Acid Reflux 01/21/20 09/08/24 History release simvastatin 20 mg tablet 20 mg PO HS 01/21/20 09/08/24 History sumatriptan succinate 50 mg tablet 50 mg PO UD PRN Headache 06/15/22 07/17/25 History (Imitrex) doxycycline hyclate 100 mg tablet 100 mg PO UD PRN rosacea 08/07/24 09/08/24 History hydrocodone 10 mg-acetaminophen 1 - 2 tab PO Q8H PRN Pain 08/07/24 09/08/24 History 325 mg tablet losartan 100 1 tab PO QAM 08/07/24 09/08/24 History mg-hydrochlorothiazide 12.5 mg tablet meloxicam 15 mg tablet 15 mg PO QAM 08/07/24 09/08/24 History tadalafil 10 mg tablet (Cialis) 10 mg PO DAILY PRN . 08/07/24 09/08/24 History cholecalciferol (vitamin D3) 125 125 mcg PO DAILY 09/04/24 09/08/24 History mcg (5,000 unit) capsule oxycodone 5 mg tablet 5 mg PO Q6H PRN pain #30 tabs 09/08/24 Rx Patient History Medical History Degenerative disc disease Spinal stenosis Rosacea BPH (benign prostatic hyperplasia) Anxiety and depression History of blood transfusion [place]-operative for back surgery Hypertension controlled, stable per pt Obesity Sleep apnea CPAP-compliant History of skin cancer s/p excision History of seizure Epilepsy, most recent seizure approximately 50+ years ago, no issues since History of pacemaker syncopal episode>Implanted 2020, [employer] (last checked 2023) GERD (gastroesophageal reflux disease) controlled, stable per pt Atrial fibrillation Dr. Ross Surgical History History of arthroscopy right shoulder History of anesthesia reaction had hicups for 1 week after lumbar surgery History of tooth extraction H/O bilateral cataract extraction History of total knee replacement (11/16/21) right Hx of blepharoplasty Hx of arthroscopic knee surgery x3 total Right knee arthroscopy (08/08/21): LMA#5.0, atraumatic at [facility]. No issues noted per post-op anesthesia progress note. History of colonoscopy History of cardiac cath 1997 > no stents 2001 > no stents History of fusion of cervical spine x2 (Mild cervical extension limitations per pt) History of lumbar fusion x3 Family History Sister Family history of diabetes mellitus Other No family history of adverse response to anesthesia Social History Smoking Status: Never smoker Tobacco Type: Smokeless Tobacco (Dip or Chew) Second Hand Exposure: Yes (as a child); Do You Dip or Chew Tobacco: No (quit 1989); Hx Alcohol Use: Yes Alcohol type: beer Preferred Language: Turkmen Communication Ability: Effective Polymer Scientist Required: No Beliefs That Will Affect Care: None Current Living Situation: Spouse Feels Safe at Home: Yes Safety Concerns: Feels Safe At This Time Assistive Devices: CPAP and Glasses Assistive Devices Comment: reading glasses Review of Systems Review of Systems: All systems reviewed & are unremarkable except as noted in HPI & below Physical Exam Physical Exam: Constitutional: WD/WN, vitals as above, NAD, sitting up in bed,sleeping but easily arousable Head: Normocephalic, Atraumatic Eyes: PERRL, conjunctivae normal, anicteric sclerae ENMT: external ear and nose normal, oropharynx normal Neck: + dressing CDI, RICHARD drain with serosang drainage c collar in place Respiratory: normal respiratory effort, lungs clear to auscultation, no wheeze, rales, rhonchi. Normal insp/exp effort, no accessory muscle use Cardiovascular: tachycardic rate, reg rhythm, no murmur, no edema Vessels: no JVD or carotid bruit Chest: normal inspection of chest Abdomen: normal bowel sounds, soft, nontender, no hepatosplenomegaly Musculoskeletal: arom x 4 Skin: no rashes, warm and dry normal turgor Neurologic: no face palsy, no dysarthria CN's II-XI intact bilaterally and moves all extremities Psychiatric: A+Ox3, euthymic affect Results & Data Vital Signs (Past 12 Hours) Vital Signs Temp Pulse Pulse Resp BP Pulse Ox O2 Del Method 09/08/24 13:10 36.7 C 110 H 14 155/78 H 98 Nasal Cannula 09/08/24 12:55 104 H 14 143/88 H 100 Nasal Cannula 09/08/24 12:45 36.7 C 99 H 14 124/91 100 Nasal Cannula 09/08/24 12:35 90 14 134/88 100 Nasal Cannula 09/08/24 12:25 96 H 13 156/83 H 100 Nasal Cannula 09/08/24 12:15 90 16 153/85 H 97 Oxymask 09/08/24 12:05 94 H 15 140/84 100 Oxymask 09/08/24 11:55 90 18 152/94 H 100 Oxymask 09/08/24 11:45 36.3 C L 84 17 137/79 98 Oxymask 09/08/24 07:59 37 C 83 20 153/83 H 98 Room Air O2 Flow Rate 09/08/24 13:10 2 09/08/24 12:55 2 09/08/24 12:45 2 09/08/24 12:35 2 09/08/24 12:25 2 09/08/24 12:15 5 09/08/24 12:05 5 09/08/24 11:55 5 09/08/24 11:45 5 09/08/24 07:59 Laboratory Results I have independently reviewed and interpreted patient's admitting labs including CBC, CMP, UA on 08/12/24. Post op ecg independently reviewed and interpreted by myself reveals sinus tachy with PACS, t wave inv laterally is unchanged form July. Diagnostic Findings Cervical Spine X-Ray 09/08/24 10:05 FL cervical 2-3V CLINICAL HISTORY: C3-5 DISCECTOMY COMPARISON STUDY: None FLUOROSCOPY TIME: 16 seconds FLUOROSCOPY IMAGES: 3 EXPOSURE DOSE: 4 mGy FINDINGS: Fluoroscopy was provided for cervical spine fusion. IMPRESSION: Intraoperative fluoroscopy. ACT 112: Negative or not required by law. Electronically signed by: Tra Mike M.D. 09/08/2024 12:41 PM Medications Administered Current Inpatient Medications Acetaminophen (Acetaminophen 500 Mg Tab) 1,000 mg PO PREOP AILEEN Stop: 09/08/24 18:00 Last Admin: 09/08/24 08:12 Dose: 1,000 mg Acetaminophen (Acetaminophen 500 Mg Tab) 1,000 mg PO Q8H PRN PRN Reason: MILD Pain (1,2,3) & Pre PT Stop: 10/08/24 13:16 Al Hydrox/Mg Hydrox/Simethicone (Aluminum/Magnesium Susp 30 Ml Udc) 30 ml PO Q6H PRN PRN Reason: Dyspepsia Stop: 10/08/24 13:16 Atropine Sulfate (Atropine Sulfate 0.1 Mg/Ml 10ml Syr) 0.5 mg IV Q1M PRN PRN Reason: PACU Use-HR<40 &/or Bradycardi Stop: 09/08/24 17:34 Bisacodyl (Bisacodyl 10 Mg Supp) 10 mg KS DAILY PRN PRN Reason: Constipation Stop: 10/08/24 13:16 Celecoxib (Celebrex 200 Mg Cap) 200 mg PO PREOP AILEEN Stop: 09/08/24 18:00 Last Admin: 09/08/24 08:12 Dose: 200 mg Diphenhydramine HCl (Diphenhydramine Capsule 25 Mg Cap) 25 mg PO Q6H PRN PRN Reason: Allergic Rhinitis/Insomnia Stop: 10/08/24 13:16 Duloxetine HCl (Duloxetine Hcl 60 Mg Cap) 60 mg PO HS AILEEN Stop: 10/08/24 20:59 Ephedrine Sulfate (Ephedrine Sulfate 50 Mg/Ml Amp) 5 mg IV Q5M PRN PRN Reason: PACU Use Only-SBP<90 mmHg Stop: 09/08/24 17:34 Epinephrine (Racepinephrine 2.25% Nebu Soln 0.5 Ml Vial) 0.5 ml INH NOW PRN PRN Reason: If stridor present Famotidine (Famotidine 20 Mg Tab) 20 mg PO Q12H PRN PRN Reason: Dyspepsia Stop: 10/08/24 13:16 Gabapentin (Gabapentin 300 Mg Cap) 300 mg PO PREOP AILEEN Stop: 09/08/24 18:00 Last Admin: 09/08/24 08:12 Dose: 300 mg Hydrochlorothiazide (Hydrochlorothiazide 25 Mg Tab) 12.5 mg PO QAM AILEEN Stop: 10/09/24 08:59 Hydromorphone HCl (Hydromorphone Inj 2 Mg/Ml Syr/Vial) 0.5 mg IV Q5M PRN PRN Reason: PACU Use Only-Pain Stop: 09/08/24 17:34 Hydromorphone HCl (Hydromorphone Inj 0.5 Mg/0.5 Ml Syr) 0.5 mg IV Q3H PRN PRN Reason: MODERATE Pain(4,5,6)/Pre PT Stop: 09/22/24 13:16 Hydromorphone HCl (Hydromorphone Inj 1 Mg/Ml Syringe) 1 mg IV Q3H PRN PRN Reason: SEVERE Pain (7,8,9,10) Stop: 09/22/24 13:16 Last Admin: 09/08/24 13:28 Dose: 1 mg Hydroxyzine HCl (Hydroxyzine Hcl 25 Mg Tab) 25 mg PO Q8H PRN PRN Reason: Anxiety Stop: 10/08/24 13:16 Lactated Ringer's (Lr) 1,000 mls @ 60 mls/hr IV .[id number] AILEEN Stop: 09/08/24 22:39 Last Admin: 09/08/24 08:12 Dose: Not Given Cefazolin Sodium (Ancef 2000mg) 2,000 mg in 15 mls @ 3.75 mls/min IV PREOP AILEEN; Protocol Stop: 09/08/24 18:00 Last Admin: 09/08/24 09:51 Dose: 3.75 mls/min Lactated Ringer's (Lr) 1,000 mls @ 15 mls/hr IV .Q24H AILEEN Stop: 09/09/24 05:59 Last Infusion: 09/08/24 09:49 Dose: Infused Promethazine HCl 6.25 mg/ (Sodium Chloride) 50.25 mls @ 204 mls/hr IV ONCE PRN PRN Reason: PACU Use Only-Nausea/Vomiting Stop: 09/08/24 17:35 Dexamethasone 8 mg/ Syringe 2 mls @ 1 mls/min IV NOW PRN PRN Reason: If stridor present Acetaminophen (Ofirmev) 1,000 mg in 100 mls @ 400 mls/hr IV Q8H PRN PRN Reason: MILD Pain (1,2,3) & Pre PT Stop: 09/09/24 13:17 Cefazolin Sodium (Ancef 2000mg) 2,000 mg in 15 mls @ 3.75 mls/min IV Q8H AILEEN; Protocol Stop: 09/09/24 01:48 Promethazine HCl (Phenergan) 12.5 mg in 50.5 mls @ 202 mls/hr IV Q6H PRN PRN Reason: Nausea And Vomiting Stop: 10/08/24 13:16 Dexamethasone 6 mg/ Syringe 1.5 mls @ 1 mls/min IV Q8H AILEEN Stop: 09/09/24 06:02 Influenza Virus Vaccine Quadrival (Do Not Administer Flu Vaccine) 1 each N/A PRN PRN PRN Reason: Notification Stop: 10/08/24 13:16 Lorazepam (Lorazepam 0.5 Mg Tab) 0.5 mg PO Q8H PRN PRN Reason: Sedation/Anxiety Stop: 10/08/24 13:16 Lorazepam (Lorazepam 2 Mg/1 Ml Vial) 0.5 mg IV Q8H PRN PRN Reason: Sedation/Anxiety Stop: 10/08/24 13:16 Losartan Potassium (Losartan Potassium 50 Mg Tab) [facility] Stop: 10/09/24 08:59 Magnesium Hydroxide (Magnesium Hydroxide Susp 30 Ml Udc) 30 ml PO Q24H PRN PRN Reason: Constipation Stop: 10/08/24 13:16 Metoclopramide HCl (Metoclopramide Hcl Inj 5 Mg/Ml 2 Ml Vial) 10 mg IV Q6H PRN PRN Reason: Nausea &/or Vomiting Stop: 10/08/24 13:16 Naloxone HCl (Naloxone Hcl 0.4 Mg/1 Ml Vial/Carp) 0.1 mg IV Q5M PRN PRN Reason: Oversedation/Resp depression Stop: 10/08/24 13:16 Ondansetron HCl (Ondansetron Inj 2 Mg/Ml 2 Ml Vial) 4 mg IV ONCE PRN PRN Reason: PACU Use Only-Nausea/Vomiting Stop: 09/08/24 17:35 Ondansetron HCl (Ondansetron Inj 2 Mg/Ml 2 Ml Vial) 4 mg IV Q6H PRN PRN Reason: Nausea &/or Vomiting Stop: 10/08/24 13:16 Ondansetron HCl (Ondansetron 4 Mg Od Tab) 4 mg PO Q6H PRN PRN Reason: Nausea Stop: 10/08/24 13:16 Oxycodone HCl (Oxycodone Hcl Ir 5 Mg Tab (Immediate Release)) 5 - 10 mg PO Q4H PRN PRN Reason: MOD/SEV Pain & Pre PT Stop: 09/22/24 13:16 Pantoprazole Sodium (Pantoprazole 40 Mg Tab) 40 mg [facility] Stop: 10/09/24 08:59 Pneumococcal Polyvalent Vaccine (Do Not Administer Pneumococcal Vaccine) 1 each N/A PRN PRN PRN Reason: Notification Stop: 10/08/24 13:16 Polyethylene Glycol (Polyethylene (Miralax) 17 Gm Pack) 17 gm PO Q6 AILEEN Stop: 10/09/24 05:59 Senna/Docusate Sodium (Docusate Sodium/Senna 50/8.6mg Tab) 2 tab PO HS AILEEN Stop: 10/08/24 20:59 Simvastatin (Simvastatin 20 Mg Tab) 20 mg PO HS AILEEN Stop: 10/08/24 20:59 Sodium Biphosphate/Sodium Phosphate (Sod Phosphate/Sod Biphosphate Enema 132 Ml Btl) 132 ml KS ONE PRN PRN Reason: Constipation Stop: 10/08/24 13:16 Sumatriptan Succinate (Sumatriptan Succinate 50 Mg Tab) 50 mg PO UD PRN PRN Reason: Headache Stop: 10/08/24 13:16 ECG Additional Comments: I have independently reviewed and interpreted patient's admitting EKG which revealed: NSR, vent rate [address] or t wave changes
[2024-09-08] MEDS: dexAMETHasone 6 MG in SYRINGE 0 ML IV SCH (15:20)
[2024-09-08] MEDS: HYDROmorphone INJ 0.5 MG/0.5 ML SYR IV PRN (16:17)
[2024-09-08] MEDS: ONDANSETRON 4 MG OD TAB PO PRN (19:20)
[2024-09-08] MEDS: DOCUSATE SODIUM/SENNA 50/8.6MG TAB PO SCH (20:27)
[2024-09-08] MEDS: SIMVASTATIN 20 MG TAB PO SCH (20:27)
[2024-09-09 04:59] VITALS: TEMP 98.1
[2024-09-09] MEDS: POLYETHYLENE (MIRALAX) 17 GM PACK PO SCH (05:06)
[2024-09-09 07:16] VITALS: RESP 16
[2024-09-09] MEDS ORDERED: hydroCHLOROthiazide 25 MG TAB PO SCH (09:00)
[2024-09-09] MEDS: LOSARTAN POTASSIUM 50 MG TAB PO SCH (09:03)
[2024-09-09 11:17] VITALS: BP 126/67; PULSE 83; O2SAT 95
--- NOTE | 2024-09-09 12:07 | Discharge Summary ---
Date of Service September 09, 2024 Admission HPI Per Admitting Provider This is a 69-year-old male who presents chronic persistent neck and arm pain of failing course of nonoperative care is here for surgical invention. Principal Diagnosis Cervical spondylosis with radiculopathy Discharge Data Allergies Allergy/AdvReac Type Severity Reaction Status Date / Time nickel Allergy Mild Local Verified 09/08/24 07:54 dermatitis gluten AdvReac Intermediate Diarrhea Verified 09/08/24 07:54 (celiac disease) ciprofloxacin [From Cipro] AdvReac Mild Upset Verified 09/08/24 07:54 stomach Consultations 09/08/24 13:17 Consult Hospitalist Routine Procedures Performed Operation Date: 09/08/24 10:05 Actual Procedures p C3-C5 Anterior Cervical Discectomy and Fusion, Spinal Cord Monitoring(Not Applicable) - Philip De La Cruz DO Ordered Studies 09/08/24 10:05 FL cervical 2-3V Routine Hospital Course (1) Cervical spondylosis with radiculopathy: Patient underwent anterior cervical discectomy fusion trial as well as second orthopedic for postoperative. Postop leg swelling well. No change in voice. Total Time Total Time Spent Total Time Spent (In Minutes): 20 minutes Discharge Plan Discharge Items Patient Disposition: Home - Self-Care Reason For Visit: Cervical Spondylosis with Radiculopathy Discharge Diagnosis: Cervical spondylosis with radiculopathy Activity: As commented below Non-emergency contact: Primary Care Provider Call non-emergency contact if: you have any medication questions Follow-up/Referrals: Laquita Kuo DO [Primary Care Provider] - Diet: Regular Addtl Attending Provider Instructions: ACTIVITY RECOMMENDATIONS: SELF CARE INSTRUCTIONS AFTER CERVICAL FUSIONS 1. No smoking. Smoking drastically decreases the chance of a solid fusion. 2. No bending, lifting more than 5 pounds, or twisting (roll like a log when turning in bed). 3. You may shower 3 days after surgery. Thoroughly dry wound. Do not soak in the tub. 4. Cervical collar: Must be worn at all times including sleeping. You may remove the brace only to bath, eat and if you are sitting in a recliner. 5. Please walk as much as you can for exercise. Gradually increase the distance that you walk as your endurance increases. 6. You may return to previous diet. SPECIAL CARE INSTRUCTIONS: VERY IMPORTANT TO READ AND REVIEW A. Do not take any anti-inflammatory medications (i.e. Indocin, Advil, Aspirin, Naprosyn, Aleve, Motrin, etc.) as these may inhibit the chance of a solid fusion. Tylenol is okay to take. B. Your surgical incision has been closed with a cosmetic suture under the skin that will dissolve in about 6 weeks. In 14 days, you can use a pair of clean scissors and cut the suture that is left outside of the skin at the ends of your incision. C. Complications are uncommon, but please contact us if you have any signs or symptoms of: 1. wound infection (fever higher than 102.5 degrees F, redness, separation of wound, drainage, or increasing pain from the incision) 2. blood clots in legs (pain, swelling, redness and warmth in legs) 3. urinary tract infection (fever higher than 102.5 degrees, burning upon urination or increased frequency of urination) 4. nerve problems (inability to walk on your toes or heels, numbness, loss of bowel or bladder control) 5. any other symptoms that concern you. D. Please call the office at if you have any concerns or questions about your operation or recovery. MANAGING PAIN AFTER SPINAL SURGERY 1. Narcotic medication is intended for short-term use and will be provided for surgical pain. Surgical pain usually lasts for a period of 4-6 weeks. Narcotic medication includes Percocet, Vicodin, Darvocet, Tylenol #3 or Lortab. 2. Longer-term pain is more appropriately treated with non-narcotic medication such as Tylenol ES. 3. Muscle spasm is not appropriately treated with narcotics. Muscle relaxers such as Soma, Flexeril or Skelaxin can be used along with Tylenol ES. 4. Remember that we all live with some "aches and pains". This is not unusual or uncommon after an injury or as we get older. 5. We will provide appropriate medication within the normal guidelines of their prescribed use. We will also be very cautious and aware of potential abuse and extended duration of patients' medication needs. 6. Please allow 2-3 days to process refills. Prescriptions will not be mailed but must be picked up at the office. FOLLOW UP VISIT: Keep your scheduled follow-up appointment. Any questions, please call the office at . Pending Studies at Discharge: No Stand-Alone Forms: [facility], Smoking Cessation Medications and DC Order Prescriptions: New oxycodone 5 mg tablet 5 mg PO Q6H PRN (Reason: pain) Qty: 30 0RF Continued cholecalciferol (vitamin D3) 125 mcg (5,000 unit) capsule 125 mcg PO DAILY simvastatin 20 mg tablet 20 mg PO HS omeprazole 20 mg capsule,delayed release(DR/EC) 20 mg PO QAM duloxetine [Cymbalta] 60 mg capsule,delayed release(DR/EC) 60 mg PO HS sumatriptan succinate [Imitrex] 50 mg tablet 50 mg PO UD PRN (Reason: Headache) Patient Comments: SELDOM, CAN'T REMEMBER WHEN TOOK THE LAST ONE Rx Instructions: take 1 tab at onset of headache; if no relief may repeat 1 tab after at least 2 hrs; max = 4 tabs/24 hr meloxicam 15 mg Tablet 15 mg PO QAM hydrocodone-acetaminophen 10-325 mg Tablet 1 - 2 tab PO Q8H PRN (Reason: Pain) doxycycline hyclate 100 mg Tablet 100 mg PO UD PRN (Reason: rosacea) tadalafil [Cialis] 10 mg Tablet 10 mg PO DAILY PRN (Reason: .) Rx Instructions: administer approximately 30min before sexual activity; do not use more than 1 dose per 24hrs losartan-hydrochlorothiazide 100-12.5 mg Tablet 1 tab PO QAM Discharge Orders: Discharge Order (Routine); Ordered 09/09/24 Ordered By: Philip De La Cruz Admission Data Admit Date/Time: 09/08/24 11:41 Attending Provider: Philip De La Cruz Admit Provider: Philip De La Cruz Primary Care Provider: Laquita Kuo Other Providers: Loly Vázquez
--- NOTE | 2024-09-09 16:12 | Hospitalist Progress Note ---
Date of Service September 09, 2024 Assessment & Plan (1) Cervical spondylosis with radiculopathy: (2) Hypertension: (3) Sleep apnea: (4) Obesity: (5) History of pacemaker: Plan This is a 69 yr old M who has a significant PMH of HTN, HLD, hx of dual chambered pacemaker implantation in 2020 after loop recorder identified episodes of asystole, JAIME on CPAP who presents for elective cervical procedure by Dr. De La Cruz. He underwent a C3-C5 Discectomy and tolerated the procedure well. #Cervical Spondylosis with radiculopathy #S/P ACDF POD #1 EBL 10ml pain/wound management per ortho PT/OT as outpatient #HTN chronic, stable on losartan/HCTZ #HLD chronic, stable continue statin #Hx of sinus arrest, dx on loop recorded s/p dual chambered pacemaker placed in 2020 #JAIME on CPAP @ 9cmh20 #DVT ppx: per primary FULL CODE PCP: Ari Hooper PA Dispo: per primary Please note the above document was generated using voice recognition software. It may contain grammatical, syntax or spelling errors. Any formal questions or concerns about the content, text or information contained within the body of this dictation should be directly addressed to the provider for clarification Admission and Anticipated Discharge Date Admission Date: September 08, 2024 Supervising Physician Co-Signing Physician Notes I have seen and discussed the case with the collaborating advanced practitioner. I agree with the above H&P. I have reviewed and confirmed the patients medical history, the findings on physical examination, and the patients diagnosis and treatment plan with Jim CHANEL and agree with the information documented. In short, Mr. Pierce is a 69 yo gentleman s/p ACDF. Patient with tachycardia s/p procedure, thought to be 2/2 ongoing pain. EKG with PACs noted, will continue to monitor. Ongoing analgesia prn, will schedule tylenol 1000mg q8h for baseline analgesia. Patient otherwise resting in bed with no acute distress. Agree with holding HCTZ at this time and hold parameters on Losartan. Plan as above. I spent a total of 15 minutes coordinating, documenting, and providing care for this patient excluding time spent in the performance of separately billed services. All of the aforementioned completed outside of collaborating with the assigned advanced practitioner for a full treatment plan. I have reviewed the advanced practitioner's documentation, and I agree with, and take responsibility for the plan of care Subjective Patient seen and examined at bedside. Comfortable; not in distress. Denies fever, chills, chest pain, shortness of breath, abdominal pain or urinary symptoms. No significant overnight events Review of Systems Review of Systems: All systems reviewed & are unremarkable except as noted in Subjective Physical Exam Physical Exam: Constitutional: WD/WN, vitals as above, NAD, sitting up in bed,sleeping but easily arousable Neck: + dressing CDI, RICHARD drain with serosang drainage c collar in place Respiratory: normal respiratory effort, lungs clear to auscultation, no wheeze, rales, rhonchi. Normal insp/exp effort, no accessory muscle use Cardiovascular: tachycardic rate, reg rhythm, no murmur, no edema Vessels: no JVD or carotid bruit Chest: normal inspection of chest Abdomen: normal bowel sounds, soft, nontender, no hepatosplenomegaly Musculoskeletal: arom x 4 Skin: no rashes, warm and dry normal turgor Neurologic: no face palsy, no dysarthria CN's II-XI intact bilaterally and moves all extremities Results & Data Results & Data Vital Signs (Past 12 Hours) Vital Signs Temp Pulse Resp BP Pulse Ox O2 Del Method O2 Flow Rate 09/09/24 11:00 36.7 C 83 16 126/67 95 Room Air 09/09/24 09:00 36.7 C 85 16 118/67 98 Room Air 09/09/24 07:00 36.7 C 82 16 116/67 98 Room Air 09/09/24 06:57 84 14 99 Nasal Cannula 1 09/09/24 04:54 36.7 C 91 H 16 126/73 98 Nasal Cannula 1
== END 2024-09-09 13:37 | disposition home or self-care (01) | DRG 473 ==
LOC: ASU 07:37 → 3E 11:41